=== PATIENT | male | born 1985 | race Caucasian/White ===

== ENCOUNTER → 2016-11-04 | Outpatient (CLI) | payer OTHER ==
[2016-11-04 12:48] LABS: ALBUMIN 3.6 GM/DL (3.2-5.2); ALBUMIN/GLOBULIN RATIO 0.95 (1.00-1.93); ALKALINE PHOSPHATASE 65 U/L (45-117); ALT/SGPT 64 U/L (12-78); ANION GAP 8 MEQ/L (8-16); AST/SGOT 54 U/L (15-37); BASO % 0.3 % (0.0-1.0); BILIRUBIN,TOTAL 0.4 MG/DL (0.2-1.0); BLOOD UREA NITROGEN 15 MG/DL (7-18); CALCIUM LEVEL 8.2 MG/DL (8.5-10.1); CARBON DIOXIDE LEVEL 30 MEQ/L (21-32); CHLORIDE LEVEL 106 MEQ/L (98-107); CHOLESTEROL LEVEL 173 MG/DL (<200); CREATININE FOR GFR 0.98 MG/DL (0.70-1.30); EOS # 0.1 K/mm3 (0.0-0.50); EOS % 2.6 % (0.0-3.0); FREE T4 1.23 NG/DL (0.76-1.46); GLOMERULAR FILTRATION RATE > 60.0 (>60); GLUCOSE, FASTING 97 MG/DL (70-105); LARGE UNSTAINED CELL # 0.1 K/mm3 (0.0-0.4); LARGE UNSTAINED CELL % 1.8 % (0.0-4.0); LYMPH # 1.5 K/mm3 (1.5-4.5); MEAN CORPUSCULAR HEMOGLOBIN 28.5 pg (27.0-33.0); MEAN CORPUSCULAR VOLUME 89.1 fl (80.0-96.0); MONO # 0.3 K/mm3 (0.0-0.8); MONO % 6.5 % (0.0-5.0); NEUTROPHILS % 59.8 % (36.0-66.0); PLATELET COUNT, AUTOMATED 244 k/mm3 (150-450); POTASSIUM SERUM 4.8 MEQ/L (3.5-5.1); SODIUM LEVEL 144 MEQ/L (136-145); TOTAL PROTEIN 7.4 GM/DL (6.4-8.2); TRIGLYCERIDES LEVEL 37 MG/DL (<150)
[2016-11-04 13:12] LABS: CONTROL LINE HPYORI INT CTR LINE PRESENT
== END ==
LOC: M WUC 09:16
PROVIDERS: ATTEND Physician Assistant Medical
DX: R63.5 Abnormal weight gain (principal); Z11.2 Encounter for screening for other bacterial diseases; Z00.00 Encounter for general adult medical examination without abnormal findings

== ENCOUNTER → 2016-12-11 | Outpatient (CLI) | payer OTHER | LOC: M SLEEP 19:38 | PROVIDERS: ATTEND Nurse Practitioner Adult Health | DX: G47.33 Obstructive sleep apnea (adult) (pediatric) (principal) ==

== ENCOUNTER → 2018-05-27 | Outpatient (CLI) | payer OTHER ==
[2018-05-27 17:45] LABS: BASO % 0.4 % (0.0-1.0); EOS # 0.2 10^3/uL (0.0-0.50); EOS % 2.1 % (0.0-3.0); HEMATOCRIT 47.5 % (42.0-52.0); HEMOGLOBIN 14.9 g/dl (13.5-17.5); IMMATURE GRANULOCYTE % 1.1 % (0-3.0); LYMPH # 2.1 10^3/uL (1.5-4.5); LYMPH % 29.5 % (24.0-44.0); MEAN CORPUSCULAR HEMOGLOBIN 28.3 pg (27.0-33.0); MEAN CORPUSCULAR HGB CONC 31.4 g/dl (32.0-36.5); MEAN CORPUSCULAR VOLUME 90.3 fl (80.0-96.0); MONO # 0.7 10^3/uL (0.0-0.8); MONO % 9.8 % (0.0-5.0); NEUTROPHILS # 4.1 10^3/uL (1.8-7.7); NEUTROPHILS % 57.1 % (36.0-66.0); PLATELET COUNT, AUTOMATED 258 10^3/uL (150-450); RED BLOOD COUNT 5.26 10^6/uL (4.30-6.10); RED CELL DISTRIBUTION WIDTH 13.2 % (11.5-14.5); WHITE BLOOD COUNT 7.3 10^3/uL (4.0-10.0)
[2018-05-27 18:04] LABS: ANION GAP 9 MEQ/L (8-16); BLOOD UREA NITROGEN 17 MG/DL (7-18); CALCIUM LEVEL 8.9 MG/DL (8.5-10.1); CARBON DIOXIDE LEVEL 28 MEQ/L (21-32); CHLORIDE LEVEL 106 MEQ/L (98-107); CREATININE FOR GFR 0.91 MG/DL (0.70-1.30); GLOMERULAR FILTRATION RATE > 60.0 (>60); GLUCOSE, FASTING 88 MG/DL (70-100); POTASSIUM SERUM 4.4 MEQ/L (3.5-5.1); SODIUM LEVEL 143 MEQ/L (136-145)
[2018-05-28 08:44] LABS: CONTROL LINE HPYORI INT CTR LINE PRESENT; H PYLORI QUALITATIVE IgG NEGATIVE (NEGATIVE)
== END ==
LOC: M WUC 12:40
DX: R11.2 Nausea with vomiting, unspecified (principal)
CPT/HCPCS: 80048

== ENCOUNTER 2018-06-16 11:53 | Emergency (ER) | payer OTHER ==
[2018-06-16] MEDS: NS 1,000 ML IV (12:30)
[2018-06-16 12:42] LABS: BASO % 0.3 % (0.0-1.0); EOS # 0.1 10^3/uL (0.0-0.50); EOS % 1.7 % (0.0-3.0); HEMATOCRIT 47.2 % (42.0-52.0); HEMOGLOBIN 15.2 g/dl (13.5-17.5); IMMATURE GRANULOCYTE % 0.5 % (0-3.0); LYMPH # 1.2 10^3/uL (1.5-4.5); LYMPH % 19.6 % (24.0-44.0); MEAN CORPUSCULAR HEMOGLOBIN 28.6 pg (27.0-33.0); MEAN CORPUSCULAR HGB CONC 32.2 g/dl (32.0-36.5); MEAN CORPUSCULAR VOLUME 88.7 fl (80.0-96.0); MONO # 0.4 10^3/uL (0.0-0.8); MONO % 7.2 % (0.0-5.0); NEUTROPHILS # 4.2 10^3/uL (1.8-7.7); NEUTROPHILS % 70.7 % (36.0-66.0); PLATELET COUNT, AUTOMATED 255 10^3/uL (150-450); RED BLOOD COUNT 5.32 10^6/uL (4.30-6.10); RED CELL DISTRIBUTION WIDTH 13.2 % (11.5-14.5)
[2018-06-16 13:20] LABS: ANION GAP 5 MEQ/L (8-16); BLOOD UREA NITROGEN 15 MG/DL (7-18); CALCIUM LEVEL 8.2 MG/DL (8.5-10.1); CARBON DIOXIDE LEVEL 30 MEQ/L (21-32); CHLORIDE LEVEL 107 MEQ/L (98-107); CK-MB VALUE MASS < 1.0 NG/ML (<3.6); CPK CREATINE PHOSPHOKINASE 44 U/L (39-308); GLOMERULAR FILTRATION RATE > 60.0 (>60); GLUCOSE, FASTING 89 MG/DL (70-100); MB/CK RELATIVE INDEX 2.27 (< OR =4); POTASSIUM SERUM 4.4 MEQ/L (3.5-5.1); SODIUM LEVEL 142 MEQ/L (136-145); TROPONIN I < 0.02 NG/ML (< 0.10)
[2018-06-16] MEDS: MORPHINE 2 MG/ML 1ML SYRINGE (J2270) IV (13:35)
== END 2018-06-16 14:15 | disposition home or self-care (01) ==
LOC: M ED 11:53
DX: R07.9 Chest pain, unspecified (principal); R94.31 Abnormal electrocardiogram [ECG] [EKG]; K21.9 Gastro-esophageal reflux disease without esophagitis; Z79.899 Other long term (current) drug therapy
CPT/HCPCS: J2270

== ENCOUNTER → 2018-10-25 | Outpatient (CLI) | payer OTHER ==
[~2018-10-25] MED LIST: APAP500T10 PO; BREO1INH PO; CIPR-249 PO; FLAG500T PO; METO10TA2; OMEP40CA2; PROAAER10; ROBA500T PO; SERT-138; ZOFR4TAB16 PO
--- NOTE | 2018-10-25 18:47 | REP ---
Clinical: Contusion. Technique: AP and lateral views of the left humerus. Findings: Osseous structures, joint spaces, and surrounding soft tissues are normal. No acute fracture dislocation. No subcutaneous emphysema or radiodense foreign body. Impression: No acute fracture dislocation. Electronically Signed by Cirilo Landaverde MD 10/25/2018 06:38 P
--- NOTE | 2018-10-25 18:50 | REP ---
Clinical: Contusion . Technique: Internal rotation, external rotation, and Y view left shoulder . Findings: No acute fracture or dislocation. The acromioclavicular and glenohumeral joints are intact. No periarticular calcifications or degenerative changes are appreciated. Sub acromial space is normal. Surrounding soft tissues are unremarkable. Impression: No acute fracture or dislocation. Electronically Signed by Cirilo Landaverde MD 10/25/2018 06:41 P
== END ==
LOC: M WUC 18:19
PROVIDERS: ATTEND Physician Assistant
DX: S40.012A Contusion of left shoulder, initial encounter (principal); S40.022A Contusion of left upper arm, initial encounter; X58.XXXA Exposure to other specified factors, initial encounter; Y92.9 Unspecified place or not applicable

== ENCOUNTER 2018-10-29 05:27 | Emergency (ER) | payer OTHER ==
[~2018-10-29] VITALS: Ht 175.3 cm; Wt 140.9 kg
[~2018-10-29 05:27] MED LIST changes: -CIPR-249 PO; -FLAG500T PO; -ZOFR4TAB16 PO
[2018-10-29] MEDS ORDERED: NS 1,000 ML IV ONE (06:15)
[2018-10-29] MEDS ORDERED: METOCLOPRAMIDE INJ 10MG/2ML VIAL (J2765) IV ONE (06:15)
[2018-10-29] MEDS ORDERED: MORPHINE 4 MG/ML 1ML VIAL/SYRINGE (J2270) IV ONE (06:15)
[2018-10-29 06:34] LABS: APPEARANCE, URINE CLEAR (CLEAR); BACTERIA, URINE AUTO NEGATIVE (NEGATIVE); BASO % 0.5 % (0.0-1.0); BILIRUBIN, URINE AUTO NEGATIVE (NEGATIVE); BLOOD, URINE BLOOD NEGATIVE (NEGATIVE); COLOR, URINE YELLOW (YELLOW); EOS # 0.2 10^3/uL (0.0-0.50); GLUCOSE, URINE (UA) AUTO NEGATIVE (NEGATIVE); HEMATOCRIT 45.9 % (42.0-52.0); HEMOGLOBIN 14.4 g/dl (13.5-17.5); KETONE, URINE AUTO NEGATIVE (NEGATIVE); LEUKOCYTE ESTERASE, URINE AUTO NEGATIVE (NEGATIVE); LYMPH # 2.1 10^3/uL (1.5-4.5); LYMPH % 24.6 % (24.0-44.0); MEAN CORPUSCULAR HEMOGLOBIN 28.1 pg (27.0-33.0); MEAN CORPUSCULAR HGB CONC 31.4 g/dl (32.0-36.5); MEAN CORPUSCULAR VOLUME 89.6 fl (80.0-96.0); MONO # 0.8 10^3/uL (0.0-0.8); MONO % 9.2 % (0.0-5.0); MUCUS, URINE SMALL (NEGATIVE); NEUTROPHILS # 5.4 10^3/uL (1.8-7.7); NITRITE, URINE AUTO NEGATIVE (NEGATIVE); PLATELET COUNT, AUTOMATED 251 10^3/uL (150-450); PROTEIN, URINE AUTO NEGATIVE (NEGATIVE); RBC, URINE AUTO 3 /HPF (0-3); RED BLOOD COUNT 5.12 10^6/uL (4.30-6.10); SPECIFIC GRAVITY URINE AUTO 1.018 (1.002-1.035); SQUAMOUS EPITHELIAL CELL UR AU 0 /HPF (0-6); WBC, URINE AUTO 1 /HPF (0-3); WHITE BLOOD COUNT 8.6 10^3/uL (4.0-10.0)
[2018-10-29 06:59] LABS: ALBUMIN 3.7 GM/DL (3.2-5.2); ALT/SGPT 24 U/L (12-78); BILIRUBIN,DIRECT 0.1 MG/DL (0.0-0.2); BILIRUBIN,TOTAL 0.5 MG/DL (0.2-1.0); BLOOD UREA NITROGEN 18 MG/DL (7-18); CARBON DIOXIDE LEVEL 27 MEQ/L (21-32); CHLORIDE LEVEL 107 MEQ/L (98-107); CREATININE FOR GFR 0.87 MG/DL (0.70-1.30); GLOMERULAR FILTRATION RATE > 60.0 (>60); GLUCOSE, FASTING 103 MG/DL (70-100); LIPASE 56 U/L (73-393); POTASSIUM SERUM 4.5 MEQ/L (3.5-5.1); SODIUM LEVEL 141 MEQ/L (136-145); TOTAL PROTEIN 7.7 GM/DL (6.4-8.2)
[2018-10-29] MEDS: GASTROGRAFIN SOLUTION 30ML PO SCH ×2 (07:10→07:45)
[2018-10-29] MEDS ORDERED: ISOVUE-370 76% 100ML VIAL (Q9967) As Ordered ONE (07:31)
--- NOTE | 2018-10-29 07:58 | REPVR ---
EXAM: CT Abdomen and Pelvis With Contrast EXAM DATE/TIME: 10/29/2018 7:37 AM CLINICAL HISTORY: 32 years old, male; Pain; Abdominal pain; Generalized TECHNIQUE: Axial computed tomography images of the abdomen and pelvis with intravenous contrast. All CT scans at this facility use at least one of these dose optimization techniques: automated exposure control; mA and/or kV adjustment per patient size (includes targeted exams where dose is matched to clinical indication); or iterative reconstruction. Coronal and sagittal reformatted images were created and reviewed. CONTRAST: Contrast Material: 100 ml of [id number]; Contrast Route: iv COMPARISON: No relevant prior studies available. FINDINGS: Lower thorax: There is a small sliding hiatal hernia. ABDOMEN: Liver: Normal. No mass. Gallbladder and bile ducts: Normal. No calcified stones. No ductal dilation. Pancreas: Normal. No ductal dilation. Spleen: The spleen is mildly enlarged measuring 14.6 x 13.3 x 6.0 cm. Adrenals: Normal. No mass. Kidneys and ureters: There is a punctate 1 mm left upper pole stone (axial image 67). Another punctate 1 mm stone is seen in the left midpole (axial image 77). There is no hydronephrosis. Stomach and bowel: Normal. No obstruction. No mucosal thickening. Appendix: No evidence of appendicitis. PELVIS: Bladder: Unremarkable as visualized. Reproductive: Unremarkable as visualized. ABDOMEN and PELVIS: Intraperitoneal space: Normal. No free air. No significant fluid collection. 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 Soft tissues: Unremarkable. Vasculature: Normal. No abdominal aortic aneurysm. Lymph nodes: There is nonspecific shotty small bowel mesenteric lymph nodes. There are shotty bilateral inguinal lymph nodes. IMPRESSION: 1. Mild splenomegaly. 2. Small sliding hiatal hernia. 3. Punctate 1 mm left renal nonobstructing stones. 4. Nonspecific shotty small bowel mesenteric lymph nodes is nonspecific and can be secondary to infectious/inflammatory process such as enteritis. Correlate clinically. 5. Bilateral shotty inguinal lymph nodes. These can also be reactive to an inflammatory/infectious process. Follow up is recommended to document resolution or stability. Electronically signed by: Chito Emerson On 10/29/2018 07:57:51 AM
[2018-10-29] MEDS ORDERED: CIPR-249 PO (08:10)
[2018-10-29] MEDS ORDERED: FLAG500T PO (08:10)
[2018-10-29] MEDS ORDERED: ZOFR4TAB16 PO (08:11)
[2018-10-29] MEDS ORDERED: CIPROFLOXACIN 500 MG TAB PO ONE (08:15)
[2018-10-29] MEDS ORDERED: metroNIDAZOLE (FLAGYL) 500 MG TAB PO ONE (08:15)
[2018-10-29] MEDS ORDERED: OXYCODONE/APAP 5MG/325MG(BULK FOR ED) 1 TABLET PO ONE (08:15)
--- NOTE | 2018-10-29 08:23 | ED PDOC ---
Post-Departure Follow-Up ashly encarnacion faxed formal report of ct abd/p for fu Shelby Lopez MD Oct 29, 2018 08:22
[2018-10-29 08:29] VITALS: BP 125/78
== END 2018-10-29 08:34 | disposition home or self-care (01) ==
LOC: M ED 05:27
DX: K52.9 Noninfective gastroenteritis and colitis, unspecified (principal); R10.9 Unspecified abdominal pain; R11.10 Vomiting, unspecified
CPT/HCPCS: 74177; 80048; 80076; 81001; 83690; 85025; 87086; 96374; 96375; 99284; J2270; J2765; Q9967

== ENCOUNTER → 2019-11-08 | Outpatient (REF) | payer MEDICAID, OTHER ==
[~2019-11-08] MED LIST changes: +CIPR-249 PO; +FLAG500T PO; -OMEP40CA2; +OMEP40CA97; +ZOFR4TAB16 PO
[2019-11-08 17:21] LABS: BASO % 0.4 % (0.0-1.0); EOS # 0.3 10^3/uL (0.0-0.5); EOS % 3.7 % (0.0-3.0); HEMATOCRIT 44.6 % (42.0-52.0); HEMOGLOBIN 13.8 g/dl (13.5-17.5); LYMPH # 2.6 10^3/uL (1.5-5.0); LYMPH % 38.6 % (24.0-44.0); MEAN CORPUSCULAR HEMOGLOBIN 28.8 pg (27.0-33.0); MEAN CORPUSCULAR HGB CONC 30.9 g/dl (32.0-36.5); MEAN CORPUSCULAR VOLUME 92.9 fl (80.0-96.0); MONO # 0.5 10^3/uL (0.0-0.8); MONO % 7.4 % (0.0-5.0); NEUTROPHILS # 3.3 10^3/uL (1.5-8.5); NEUTROPHILS % 49.3 % (36.0-66.0); PLATELET COUNT, AUTOMATED 254 10^3/uL (150-450); WHITE BLOOD COUNT 6.7 10^3/uL (4.0-10.0)
[2019-11-08 17:26] LABS: APPEARANCE, URINE CLEAR (CLEAR); BACTERIA, URINE AUTO NEGATIVE (NEGATIVE); BILIRUBIN, URINE AUTO NEGATIVE (NEGATIVE); BLOOD, URINE BLOOD NEGATIVE (NEGATIVE); COLOR, URINE YELLOW (YELLOW); GLUCOSE, URINE (UA) AUTO NEGATIVE (NEGATIVE); KETONE, URINE AUTO NEGATIVE (NEGATIVE); LEUKOCYTE ESTERASE, URINE AUTO NEGATIVE (NEGATIVE); NITRITE, URINE AUTO NEGATIVE (NEGATIVE); PROTEIN, URINE AUTO NEGATIVE (NEGATIVE); RBC, URINE AUTO 1 /HPF (0-3); SQUAMOUS EPITHELIAL CELL UR AU 0 /HPF (0-6); UROBILINOGEN, URINE AUTO 0.2 mg/dL (0.0-2.0); WBC, URINE AUTO 1 /HPF (0-3)
[2019-11-08 17:40] LABS: HEMOGLOBIN A1c 5.2 %
[2019-11-08 17:47] LABS: ALBUMIN 3.5 GM/DL (3.2-5.2); ALT/SGPT 25 U/L (12-78); BILIRUBIN,TOTAL 0.3 MG/DL (0.2-1.0); BLOOD UREA NITROGEN 17 MG/DL (7-18); CALCIUM LEVEL 8.4 MG/DL (8.5-10.1); CARBON DIOXIDE LEVEL 30 MEQ/L (21-32); CHLORIDE LEVEL 107 MEQ/L (98-107); CHOLESTEROL LEVEL 174 MG/DL (<200); CHOLESTEROL RISK RATIO 2.259 (<5); CREATININE FOR GFR 0.91 MG/DL (0.70-1.30); FREE T4 0.93 NG/DL (0.76-1.46); GLOMERULAR FILTRATION RATE > 60.0 (>60); GLUCOSE, FASTING 89 MG/DL (70-100); HDL CHOLESTEROL 77 MG/DL (>40); LDL CHOLESTEROL 87 MG/DL (<100); MAGNESIUM LEVEL 2.3 MG/DL (1.8-2.4); NON-HDL-C 97 MG/DL; POTASSIUM SERUM 4.3 MEQ/L (3.5-5.1); SODIUM LEVEL 142 MEQ/L (136-145); THYROID STIMULATING HORMONE 0.913 uIU/ML (0.358-3.740); TOTAL PROTEIN 6.8 GM/DL (6.4-8.2); TRIGLYCERIDES LEVEL 49 MG/DL (<150)
== END ==
LOC: M SFHCCAPE 09:02
PROVIDERS: ATTEND Physician Assistant
DX: Z00.00 Encounter for general adult medical examination without abnormal findings (principal); E66.01 Morbid (severe) obesity due to excess calories

== ENCOUNTER → 2020-04-11 | Outpatient (CLI) | payer MEDICAID, OTHER ==
--- NOTE | 2020-05-10 13:51 | SLEEPCENT ---
DATE: 04/11/2020 ORDERED BY: Dr. Natalya Yang Nocturnal polysomnography was performed for evaluation of sleep physiology in this patient with a history of somnolence and nonrestorative sleep. There was 7 hours and 12 minutes of data reviewed. There was 284 minutes of sleep identified. Sleep latency was prolonged at 73 minutes. REM latency was prolonged at 164 minutes. Sleep architecture showed fragmentation. There was one REM cycle. Overall sleep efficiency was 66.9%. The electrocardiogram showed a sinus rhythm with an average heart rate of 80 beats per minute. EEG showed reasonably normal waveforms for wake and sleep. There were 448 respiratory events identified of 10 seconds in duration or greater, for an apnea-hypopnea index of 94.6. The events were primarily obstructive, but 46 mixed and central apneas were also seen. Events were not exclusive to sleep stage. They were not exclusive to body posture. Arousals from respiratory events occurred 16.9 times per hour, and oxygen desaturations were seen into the 80s. There was some limb activity, but arousals were few. IMPRESSION: Severe obstructive sleep apnea syndrome (G47.33). Apnea-hypopnea index 94.6. RECOMMENDATION: The patient should be encouraged to return to the sleep disorder center for pressure therapy. In the interim, alcohol and sedative avoidance should be practiced and caution exercised during the operation of motor vehicles. ANTHONYD
== END ==
LOC: M SLEEP 20:00
PROVIDERS: ATTEND Nurse Practitioner Family
DX: G47.33 Obstructive sleep apnea (adult) (pediatric) (principal)

== ENCOUNTER → 2020-05-27 | Outpatient (CLI) | payer OTHER ==
--- NOTE | 2020-06-02 19:12 | SLEEPCENT ---
DATE: 05/27/2020 ORDERED BY: DANK Orourke Nocturnal polysomnography was performed for the titration of pressure therapy in this patient with severe obstructive sleep apnea syndrome, apnea-hypopnea index of 94. For testing, the patient was fit with a ResMed Airfit F20 full face mask of large size, 4 cm of water pressure were applied to the circuit and the lights were extinguished. Seven hours and 53 minutes of data were reviewed. There was 395 minutes of sleep identified. Sleep latency was normal at 14.5 minutes. REM latency was mildly delayed at 125 minutes. Sleep architecture showed some persistence of fragmentation but there were two REM cycles noted. Overall sleep efficiency was 84.6%. The electrocardiogram showed what appeared to be a sinus rhythm with an average heart rate of 80 beats per minute. EEG showed fairly normal waveforms for wake and sleep. Persistence of respiratory events prompted an increase in CPAP pressure and the best sleep was seen on the CPAP pressure of +9. Limb activity was prominent once again on this study. The limb movement arousal index was 8.8. IMPRESSION: Obstructive sleep apnea syndrome (G47.33). RECOMMENDATION: Nightly use of pressure therapy 9 cm of water. MTDD
== END ==
LOC: M SLEEP 20:00
PROVIDERS: ATTEND Nurse Practitioner Family
DX: G47.33 Obstructive sleep apnea (adult) (pediatric) (principal)

== ENCOUNTER → 2020-06-11 | Outpatient (REF) | payer OTHER, MEDICAID ==
[2020-06-12 11:57] LABS: BASO % 0.4 % (0.0-1.0); EOS # 0.1 10^3/uL (0.0-0.5); EOS % 1.9 % (0.0-3.0); HEMATOCRIT 43.7 % (42.0-52.0); HEMOGLOBIN 13.4 g/dl (13.5-17.5); LYMPH # 1.6 10^3/uL (1.5-5.0); LYMPH % 23.4 % (24.0-44.0); MEAN CORPUSCULAR HEMOGLOBIN 27.7 pg (27.0-33.0); MEAN CORPUSCULAR HGB CONC 30.7 g/dl (32.0-36.5); MEAN CORPUSCULAR VOLUME 90.3 fl (80.0-96.0); MONO # 0.5 10^3/uL (0.0-0.8); MONO % 7.5 % (0.0-5.0); NEUTROPHILS # 4.6 10^3/uL (1.5-8.5); NEUTROPHILS % 66.2 % (36.0-66.0); PLATELET COUNT, AUTOMATED 255 10^3/uL (150-450); RED BLOOD COUNT 4.84 10^6/uL (4.30-6.10)
[2020-06-12 12:20] LABS: HEMOGLOBIN A1c 5.2 %
[2020-06-12 12:26] LABS: ALBUMIN 3.5 GM/DL (3.2-5.2); ALT/SGPT 22 U/L (12-78); BILIRUBIN,TOTAL 0.4 MG/DL (0.2-1.0); BLOOD UREA NITROGEN 12 MG/DL (7-18); CALCIUM LEVEL 8.9 MG/DL (8.5-10.1); CARBON DIOXIDE LEVEL 30 MEQ/L (21-32); CHLORIDE LEVEL 108 MEQ/L (98-107); CHOLESTEROL LEVEL 175 MG/DL (<200); CHOLESTEROL RISK RATIO 2.364 (<5); CREATININE FOR GFR 0.99 MG/DL (0.70-1.30); FREE T4 1.17 NG/DL (0.76-1.46); GLOMERULAR FILTRATION RATE > 60.0 (>60); GLUCOSE, FASTING 87 MG/DL (70-100); HDL CHOLESTEROL 74 MG/DL (>40); LDL CHOLESTEROL 94 MG/DL (<100); NON-HDL-C 101 MG/DL; POTASSIUM SERUM 5.2 MEQ/L (3.5-5.1); PROLACTIN 9.8 NG/ML (2.1-17.7); SODIUM LEVEL 141 MEQ/L (136-145); TOTAL PROTEIN 7.5 GM/DL (6.4-8.2); TRIGLYCERIDES LEVEL 36 MG/DL (<150)
[2020-06-13 19:07] LABS: TESTOSTERONE FREE (DIRECT) 7.6 pg/mL (8.7-25.1)
== END ==
LOC: M SFHCCLAY 11:19
PROVIDERS: ATTEND Physician Assistant
DX: L98.9 Disorder of the skin and subcutaneous tissue, unspecified (principal); R19.4 Change in bowel habit; N52.9 Male erectile dysfunction, unspecified; E66.01 Morbid (severe) obesity due to excess calories

== ENCOUNTER 2020-06-20 14:15 | Outpatient (RCR) | payer OTHER | END 2020-06-29 | LOC: M PT 14:15 | PROVIDERS: ATTEND Otolaryngology | DX: M26.609 Unspecified temporomandibular joint disorder, unspecified side (principal) ==

== ENCOUNTER → 2020-08-02 | Outpatient (CLI) | payer OTHER ==
--- NOTE | 2020-08-02 15:03 | REP ---
INDICATION: RENAL STONES. COMPARISON: 10/29/2018 and contrast enhanced exam TECHNIQUE: Noncontrast enhanced stone protocol FINDINGS: The lung bases are clear and unchanged. Limited evaluation of the solid intra-organs and gallbladder show no abnormalities. Limited evaluation of the adrenal glands and kidneys show no abnormalities. There is no nephroureterolithiasis, hydronephrosis, or hydroureter. There are no urinary bladder calcifications. The pancreas is unremarkable. There is no free fluid or free air. Limited evaluation of the bowel loops and mesenteries show no abnormalities. Limited evaluation of the abdominal aorta and para-regions show no abnormalities. The osseous structures are stable and intact.. IMPRESSION: CT findings are within normal limits on this limited noncontrast enhanced examination. <Electronically signed by Eros Candelario > 08/02/20 [id number]
== END ==
LOC: M RAD 14:13
PROVIDERS: ATTEND Urology
DX: Z87.442 Personal history of urinary calculi (principal)

== ENCOUNTER → 2020-08-14 | Outpatient (REF) | payer OTHER | LOC: M SFHCCLAY 15:47 | PROVIDERS: ATTEND Nurse Practitioner Family | DX: R05 Cough (principal) ==

== ENCOUNTER → 2020-08-15 | Outpatient (CLI) | payer OTHER ==
[~2020-08-15] MED LIST changes: +GLUCAGON INJ 1MG VIAL As Ordered ONE; +ISOVUE-370 76% 100ML VIAL As Ordered ONE; +VoLumen 0.1% SUSPENSION 450ML BOTTLE As Ordered ONE
[2020-08-15 13:10] LABS: FREE T4 1.18 NG/DL (0.76-1.46); THYROID STIMULATING HORMONE 1.82 uIU/ML (0.358-3.740)
--- NOTE | 2020-08-15 15:15 | REP ---
INDICATION: ABNORMAL FINDINGS PRT DIGESTIVE, LABS FIRST!!. Evaluate for small bowel disc disease inflammatory bowel or Crohn's disease. Compare mesenteric lymphadenopathy on CT 2019. COMPARISON: Comparison CT studies are dated October 29, 2018 and August 02, 2020.. TECHNIQUE: The patient ingested oral Volumen for PO contrast per protocol. 0.6 mg of intravenous glucagon is administered. 100 ml of Isovue 370 is given intravenously for intravenous contrast. Helical scanning is acquired. Arterial phase and delayed phase imaging was acquired. Thick slab coronal and sagittal MIP images are generated. In addition coronal and sagittal multiplanar re-formation images are generated and reviewed along with axial images. FINDINGS: Preliminary digital cranberry grower radiograph demonstrates an unremarkable bowel gas pattern. The lung bases are clear. There is moderate diffuse fatty infiltration of the liver. No focal liver mass lesion is seen. The spleen is unremarkable. Normal adrenal glands are seen. No abnormality is noted in the pancreas or the gallbladder. Kidneys enhance symmetrically and are morphologically intact. No retroperitoneal mass or adenopathy is observed. No small bowel mesenteric adenopathy is seen. There are two or 3 normal appearing small bowel mesenteric lymph nodes unchanged from the October 2018 prior study. Normal appendix is visualized at the cecal tip. Dual phase post-contrast imaging shows no evidence of abnormal contrast enhancement in the wall of the smaller large bowel. Terminal ileum is unremarkable. The no obstructive lesion is seen. There is no evidence of pelvic mass or adenopathy. No abnormal fluid collection is seen. On bone window settings there is a developmental cleft and some anterior wedging in the T11 vertebral body with slight kyphosis. This is a chronic finding unchanged. Developmental cleft vertebra. No acute bony abnormality is appreciated. IMPRESSION: Unremarkable CT enterography. Scattered normal sized mesenteric lymph nodes unchanged. No bowel wall abnormality seen. Fatty infiltration of the liver. <Electronically signed by Sean Ochoa > 08/15/20 [id number]
[2020-08-21 17:07] LABS: CHROMOGRANIN A 26.5 ng/mL (0.0-101.8); GASTRIN 15 pg/mL (0-115); TISSUE TRANSGLUTAMINASE IgA <2 U/mL (0-3)
== END ==
LOC: M LAB 11:32
PROVIDERS: ATTEND Internal Medicine Gastroenterology
DX: K76.0 Fatty (change of) liver, not elsewhere classified (principal); R93.3 Abnormal findings on diagnostic imaging of other parts of digestive tract; I88.0 Nonspecific mesenteric lymphadenitis; K58.2 Mixed irritable bowel syndrome
CPT/HCPCS: 36415; 74177; 82784; 82941; 84439; 84443; 86235; 86316; J1610; Q9967

== ENCOUNTER → 2020-09-27 | Outpatient (CLI) | payer OTHER ==
[~2020-09-27] MED LIST changes: +AMBI5TAB PO; -GLUCAGON INJ 1MG VIAL As Ordered ONE; -ISOVUE-370 76% 100ML VIAL As Ordered ONE; +LORA2CON5 PO; +VENL75TA2 PO; -VoLumen 0.1% SUSPENSION 450ML BOTTLE As Ordered ONE
== END ==
LOC: M LABSMTC 13:54
PROVIDERS: ATTEND Anesthesiology
DX: Z20.822 Contact with and (suspected) exposure to COVID-19 (principal)

== ENCOUNTER 2020-10-01 09:50 | Day surgery (SDC) | payer OTHER ==
[~2020-10-01] VITALS: Ht 175.3 cm; Wt 152.4 kg
[~2020-10-01 09:50] MED LIST changes: +NS 1,000 ML IV ONE
--- OUTSIDE RECORDS SUMMARY | 2020-10-01 09:55 | CCD | Continuity of Care Document ---
Author Author Luca KIDD MD Organization Unknown Address [address] [place] [address] Phone [phone] Care Team Providers Care Labor Economics Professor Name Role Phone Chata Hightower P.A.-C AUTM AUTM Unavailable Problems Description No Information Available Social History Type Date Description Comments Sex Unknown ETOH Use Denies alcohol use Tobacco Use Start: Unknown Patient has never smoked Recreational Drug Use Denies Drug Use Smoking Status Reviewed: 07/29/20 Patient has never smoked Allergies, Adverse Reactions, Alerts Description No Known Drug Allergies Medications Active Medications SIG Qnty Indications Ordering Provide r Date Magnesium Citrate 1.745GM/30ML Denice ution one 10 oz bottle green or clear only, use for additional prep at 2-3 days before procedure 296ml K58.2 Nick Kidd MD 08/05/2020 Miralax 17GM/Scoop Powder use as directed see dr kidd colon preparation instructions 510gm K58.2 Jaime myriam Kidd MD 08/05/2020 CPAP Device 9cm Natalya Chance, N.P. 06/04/2020 Lorazepam 0.5mg Tablets 1 tab by mouth three times a day Unknown Lexapro 20mg Tablets 1 tab by mouth every day Unknown Albuterol Sulfate HFA 108(90Base) mcg/Act Aerosol inhale two puffs by mouth four times a day as needed Unknown Advair Diskus 250-50mcg/Dose Aeros ol 1 puff twice a day Unknown Ambien 5mg Tablets 1 tab by mouth every night at bedtime Unknown Singulair 10mg Tablets 1 by mouth every night at bedtime Unknown Immunizations Description No Information Available Vital Signs Date Vital Result Comment 08/05/2020 11:05am BP Systolic 120 mmHg BP Diastolic 70 mmHg Height 69 inches 5'9" Weight 345.00 lb BMI (Body Mass Index) 50.9 kg/m2 [place] Body Weight 160 lb Weight 156.492 kg BSA (Body Surface Area) 2.60 m2 07/29/2020 3:24pm BP Systolic 110 mmHg BP Diastolic 72 mmHg Heart Rate 106 /min O2 % BldC Oximetry 98 % Body Temperature 97.8 F Height 69 inches 5'9" Weight 340.00 lb BMI (Body Mass Index) 50.2 kg/m2 [place] Body Weight 160 lb Weight 154.224 kg BSA (Body Surface Area) 2.59 m2 Results Description No Information Available Procedures Description No Information Available Medical Devices Description No Information Available Encounters Type Date Location Provider Dx Diagnosis Office Visit 08/05/2020 11:00a [facility] Nick Kidd MD K58.2 Mixed irritable bowel syndrome R11.0 Nausea R93.3 Abnormal findings on dx imag ing of prt digestive tract Office Visit 07/29/2020 3:45p [facility] Valencia Paz, N.P. 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 G47.33 Obstructive sleep apnea (adult) (pediatr ic) Office Visit 03/28/2020 1:15p [facility] Valencia Paz, N.P. G47.33 Obstructive sleep apnea (adult) (pediatr ic) R06.83 Snoring R40.0 Somnolence G47.59 Other parasomnia Assessments Date Code Description Provider 08/05/2020 K58.2 Mixed irritable bowel syndrome D debra Kidd MD 08/05/2020 R11.0 Nausea Nick Kidd MD 08/05/2020 R93.3 Abnormal findings on diagnostic imaging of other parts of digestive tract Nick Kidd MD 07/29/2020 G47.33 Obstructive sleep apnea (adult) (pediatric) Natalya Paz N.P. 05/31/2020 M26.69 Other specified disorders of tem poromandibular joint Dru Turner MD 05/13/2020 G47.33 Obstructive sleep apnea (adult) (pediatric) Natalya Paz, N.P. 03/28/2020 G47.33 Obstructive sleep apnea (adult) (pediatric) Otto Paza, N.P. 03/28/2020 R06.83 Snoring Otto Paza, N .P. 03/28/2020 R40.0 Somnolence Brandi, Natalya, N .P. 03/28/2020 G47.59 Other parasomnia Natalya Paz, N.P. Plan of Treatment Future Appointment(s):* 01/28/2021 3:45 pm - Natalya Paz, N.P. at [facility] 08/05/2020 - Nick Kidd MD* K58.2 Mixed irritable bowel syndrome * R11.0 Nausea * R93.3 Abnormal findings on diagnostic imaging of other parts of digestive tract * * New Medication:* Magnesium Citrate 1.745 GM/30ML * Miralax 17 GM/Scoop * New Labs:* Chromogranin A, Ordered: 08/05/20 * Gastrin, Ordered: 08/05/20 * Tissue Transglutaminase Iga, Ordered: 08/05/20 * Immunoglobulin A, Ordered: 08/05/20 * FT4&TSH Panel, Ordered: 08/05/20 * New Orders:* Colonoscopy, Ordered: 08/05/20 * Endoscopy, Ordered: 08/05/20 * Comments:* many years of intermittent GI symptoms of bloating gas and loose stools. occasionally also with constipatuion. no blood, no weight loss no fever. feels flushing and weakness at times...feels drained. * Recommendations:* EGD/[facility] Gastrin, Chromogranin, celiac markers Had mesenteric and inguinal lymph nodes on CT 2018--his recent CT unfortunately was done without contrast. I will repeat the CT--do with contrast Functional Status Functional Condition Comment Date Status Independent with all ADL's Activ e Mental Status Mental Condition Comment Date Status Cognitive ability not impaired A ctive Referrals Refer to Reason for Referral Status Appt Date Nick Kidd MD CHANGE IN BOWEL HABITS, DIARRHEA, CONSTIPATION Scheduled 08/05/2020 [facility], Gastroenterology [address], [address] [place] [address] [phone]
--- OUTSIDE RECORDS SUMMARY | 2020-10-01 09:55 | CCD ---
Author Author [facility] Organization [facility] Address Unknown Phone Unavailable Care Team Providers Care Rn Heart Name Role Phone Bere Alexandra Unavailable PROBLEMS Type Condition ICD9-CM Code [id number] Code Onset Dates Condition S tatus SNOMED Code Notes Problem Morbid (severe) obesity due to excess calories E66 .01 Active 08339039193097 Problem YANG (obstructive sleep apnea) G47.33 Active 78 865472 Problem Panic disorder [episodic paroxysmal anxiety] F41.0 Active 768564023 Problem Insomnia, unspecified type G47.00 Active 56623 2000 Problem Generalized anxiety disorder F41.1 Active 218 78199 Problem Hypogonadism in male E29.1 Active 39392730 Problem Mild intermittent asthma, unspecified whether complicated J45.20 Active 672222569 Problem Drug-induced erectile dysfunction N52.2 Active 701489735 Problem Body mass index (BMI) 45.0-49.9, adult Z68.42 A ctive 724459391 Problem Major depressive disorder, recurrent, moderate F33 .1 Active 992169062 Problem Obstructive sleep apnea G47.33 Active 21272855 Problem Erectile dysfunction, unspecified erectile dysfunction typ e N52.9 Active 750055914 Problem Calculus, renal N20.0 Active 84988052 ALLERGIES No Known Allergies ENCOUNTERS from 1983 to 2020-09-21 Encounter Location Date Provider Diagnosis [facility] [place] [address] Jul Bere Alexandra Cough R05 ; Viral illness B34.9 ; Nonint ractable headache, unspecified chronicity pattern, unspecified headache type R51.9 ; Mild intermittent asthma, unspecified whether complicated J45.20 and Nausea and vomiting, intractability of vomiting not specified, unspecified vomiting type R11.2 IMMUNIZATIONS No Information SOCIAL HISTORY Tobacco Use: Social History Observation Description Date Details (start date - stop date) Never Smoker Sex Assigned At : Social History Observation Description Sex Assigned At Unknown Education: Question Answer Notes Level of Education: Finished College Audit Question Answer Notes Total Score: 0 Interpretation: Alcohol Education Language: Question Answer Notes Languages spoken: Tanzanian Worship: Question Answer Notes Worship No pentecostalism beliefs that would impact health care. Sexual Hx: Question Answer Notes Had sex in the last 12 months (vaginal, oral, or anal)? Yes Have you ever had an STD? No with Women only Use protection? No Drug and Alcohol Question Answer Notes Total Score: 0 Interpretation: No problems reported Alcohol Screening: Question Answer Notes Did you have a drink containing alcohol in the past year? No Points 0 Interpretation Negative Tobacco Use: Question Answer Notes Are you a: never smoker REASON FOR REFERRAL No Information VITAL SIGNS Weight 342 lbs Jul, Height 5'9" in Jul, BMI 50.50 kg/m2 Jul, Heart Rate 90 /min Jul, Respiratory Rate 18 /min Jul, Temperature 97.9 degrees Fahrenheit Jul, Oximetry 99%RA Jul, Blood pressure systolic 125 mm Hg Jul, Blood pressure diastolic 91 mm Hg Jul, MEDICATIONS Medication SIG (Take, Route, Frequency, Duration) Notes Start Da te End Date Status Mirtazapine 15 MG 1 tablet at bedtime Orally Once a day Active Ibuprofen 800 MG 1 tablet with food or milk a s needed Orally Three times a day for 10 day(s) Jul, Active Lexapro 20 MG 1 tablet Orally Once a day Active Ventolin HFA 108 (90 Base) MCG/ACT 1 puff as needed Inhalation ever y 4 hrs Active LORazepam 0.5 MG 1 tablet at bedtime as needed Orally Once a day Active Advair Diskus 250-50 MCG/DOSE 1 puff Inhalation Twice a day Active PROCEDURES No Information RESULTS Component Value Reference Range Rapid Flu (Cielo Influenza A+B LARISSA) Reviewed date:08/14/2020 11:23:20 Interpretation: Performing Lab:[facility], ,[place] [address] Internal Controls Performed (Y/N) yes Result A (Positive/Negative) neg Result B (Positive/Negative) neg Coronavirus 2019 NOSE (Send Out) COVID Reviewed date:08/19/2020 13:48:27 Interpretation: Performing Lab:[facility], [facility] [address] [place] [id number] , ,[place] [address] CORONAVIRUS 2019 NOSE This nucleic acid amplificat ion test was developed and its CORONAVIRUS 2019 NOSE performance characteristics determined by [facility] CORONAVIRUS 2019 NOSE [facility]. Nucleic acid a mplification tests include PCR CORONAVIRUS 2019 NOSE and TMA. This test has not been FDA cl eared or approved. CORONAVIRUS 2019 NOSE This test has been authorize d by FDA under an Emergency Use CORONAVIRUS 2019 NOSE Authorization (EUA). This test is only authorized for CORONAVIRUS 2019 NOSE the duration of time the declaration t hat circumstances CORONAVIRUS 2019 NOSE exist justifying the authori zation of the emergency use of CORONAVIRUS 2019 NOSE in vitro diagnostic tests fo r detection of SARS-CoV-2 virus CORONAVIRUS 2019 NOSE and/or diagnosis of COVID-19 infection under section CORONAVIRUS 2019 NOSE 564(b)(1) of the Act, 21 U.S .C. 360bbb-3(b) (1), unless the CORONAVIRUS 2019 NOSE authorization is terminated or revoked sooner. CORONAVIRUS 2019 NOSE When diagnostic testing is negative, t he possibility of a CORONAVIRUS 2019 NOSE false negative result should be consid ered in the context CORONAVIRUS 2019 NOSE of a patient's recent exposures and th e presence of CORONAVIRUS 2019 NOSE clinical signs and symptoms consistent with COVID-19. An CORONAVIRUS 2019 NOSE individual without symptoms of COVID-1 9 and who is not CORONAVIRUS 2019 NOSE shedding SARS-CoV-2 virus would expect to have a negative CORONAVIRUS 2019 NOSE (not detected) result in this assay. CORONAVIRUS 2019 NOSE Performed at: [email or web address] CORONAVIRUS 2019 NOSE [address], [place], [place] [id number] CORONAVIRUS 2019 NOSE Print [employer] Chief Clerk: Jordyn Naranjo PhD, P debbi: [id number] CORONAVIRUS 2019 NOSE CORONAVIRUS 2019 NOSE Not Detected CORONAVIRUS 2019 NOSE REASON FOR VISIT n/v, body aches MEDICAL (GENERAL) HISTORY Type Description Date Medical History anxiety/depression Medical History panic attacks Medical History insomnia Surgical History wisdom teeth left side only Goals Section No Information Health Concerns No Information MEDICAL EQUIPMENT No Information MENTAL STATUS No Information FUNCTIONAL STATUS No Information ASSESSMENTS Encounter Date Diagnosis Assessment Notes Treatment Notes Treatm ent Clinical Notes Jul, Cough (ICD-10 - R05) Jul, Viral illness (ICD-10 - B34.9) Jul, Nonintractable headache, uns pecified chronicity pattern, unspecified headache type (ICD-10 - R51.9) Jul, Mild intermittent asthma, un specified whether complicated (ICD-10 - J45.20) Jul, Nausea and vomiting, intract ability of vomiting not specified, unspecified vomiting type (ICD-10 - R11.2) Jul, Other Treatment options discussed with patient. PLAN OF TREATMENT Medication Medication Name Sig Start Date Stop Date Mirtazapine 15 MG 1 tablet at bedtime Orally Once a day LORazepam 0.5 MG 1 tablet at bedtime as needed Orally Once a day Advair Diskus 250-50 MCG/DOSE 1 puff Inhalation Twice a day Ventolin HFA 108 (90 Base) MCG/ACT 1 puff as needed Inhalation e very 4 hrs Ibuprofen 800 MG 1 tablet with food or milk a s needed Orally Three times a day for 10 day(s) Jul, Lexapro 20 MG 1 tablet Orally Once a day Next Appt Details prn Reason: Provider Name:Chata Hightower, 2020-10 02:00:00 PM, [address] [place], [address], Insurance Providers Payer Name Payer Address Payer Phone Insured Name Patient Relati onship to Insured Coverage Start Date Coverage End Date [facility] [address] [place] [id number] FLO KRUEGER
--- OUTSIDE RECORDS SUMMARY | 2020-10-01 09:55 | CCD ---
Author Author [facility] Organization [facility] Address Unknown Phone Unavailable Care Team Providers Care Bilingual Instructor Name Role Phone Bere Alexandra Unavailable PROBLEMS Type Condition ICD9-CM Code [id number] Code Onset Dates Condition S tatus SNOMED Code Notes Problem Morbid (severe) obesity due to excess calories E66 .01 Active 37139858798017 Problem YANG (obstructive sleep apnea) G47.33 Active 78 729457 Problem Panic disorder [episodic paroxysmal anxiety] F41.0 Active 622323291 Problem Insomnia, unspecified type G47.00 Active 59585 2001 Problem Generalized anxiety disorder F41.1 Active 218 63963 Problem Hypogonadism in male E29.1 Active 01440193 Problem Mild intermittent asthma, unspecified whether complicated J45.20 Active 816677102 Problem Drug-induced erectile dysfunction N52.2 Active 552888394 Problem Body mass index (BMI) 45.0-49.9, adult Z68.42 A ctive 909472119 Problem Major depressive disorder, recurrent, moderate F33 .1 Active 106102892 Problem Obstructive sleep apnea G47.33 Active 35343527 Problem Erectile dysfunction, unspecified erectile dysfunction typ e N52.9 Active 210211803 Problem Calculus, renal N20.0 Active 43328722 ALLERGIES No Known Allergies ENCOUNTERS from 1983 to 2020-08-20 Encounter Location Date Provider Diagnosis [facility] [place] [address] Jul Bere Alexandra IMMUNIZATIONS No Information SOCIAL HISTORY Tobacco Use: Social History Observation Description Date Details (start date - stop date) Never Smoker Sex Assigned At : Social History Observation Description Sex Assigned At Unknown Education: Question Answer Notes Level of Education: Finished College Audit Question Answer Notes Total Score: 0 Interpretation: Alcohol Education Language: Question Answer Notes Languages spoken: Central African Christian: Question Answer Notes Christian No bahai beliefs that would impact health care. Sexual [...] REASON FOR REFERRAL No Information VITAL SIGNS No information MEDICATIONS Medication SIG (Take, Route, Frequency, Duration) [...] a day Active PROCEDURES No Information RESULTS No Results REASON FOR VISIT covid negative MEDICAL (GENERAL) HISTORY Type Description Date Medical History anxiety/depression Medical History panic attacks Medical History insomnia Surgical History wisdom teeth left side only Goals Section No Information Health Concerns No Information MEDICAL EQUIPMENT No Information MENTAL STATUS No Information FUNCTIONAL STATUS No Information ASSESSMENTS No Information PLAN OF TREATMENT Medication Medication Name Sig [...] Orally Once a day Next Appt Details Provider Name:Chata Hightower, 2020-10 02:00:00 PM, [address] [place], [address], Insurance Providers Payer Name Payer Address Payer Phone Insured Name Patient Relati onship to Insured Coverage Start Date Coverage End Date [facility] [address] [place] [address] FLO KRUEGER
--- OUTSIDE RECORDS SUMMARY | 2020-10-01 09:55 | CCD ---
Author Author [facility] Organization [facility] Address Unknown Phone Unavailable Care Team Providers Care Hotel Guest Service Agent Name Role Phone Chata Hightower Unavailable PROBLEMS Type Condition ICD9-CM Code [id number] Code Onset Dates Condition S tatus SNOMED Code Notes Problem Morbid (severe) obesity due to excess calories E66 .01 Active 91802368291698 Problem YANG (obstructive sleep apnea) G47.33 Active 78 761174 Problem Panic disorder [episodic paroxysmal anxiety] F41.0 Active 394438101 Problem Insomnia, unspecified type G47.00 Active 47746 2000 Problem Generalized anxiety disorder F41.1 Active 218 93466 Problem Hypogonadism in male E29.1 Active 91074320 Problem Mild intermittent asthma, unspecified whether complicated J45.20 Active 978380024 Problem Drug-induced erectile dysfunction N52.2 Active 009856158 Problem Body mass index (BMI) 45.0-49.9, adult Z68.42 A ctive 700961706 Problem Major depressive disorder, recurrent, moderate F33 .1 Active 130052650 Problem Obstructive sleep apnea G47.33 Active 67717157 Problem Erectile dysfunction, unspecified erectile dysfunction typ e N52.9 Active 139694427 Problem Calculus, renal N20.0 Active 16970155 ALLERGIES No Known Allergies ENCOUNTERS from 1983 to 2020-08-15 Encounter Location Date Provider Diagnosis [facility] [address] [place] [address] Jul Chata Hightower IMMUNIZATIONS No Information SOCIAL HISTORY Tobacco Use: Social History Observation Description Date Details (start date - stop date) Never Smoker Sex Assigned At : Social History Observation Description Sex Assigned At Unknown Education: Question Answer Notes Level of Education: Finished College Audit Question Answer Notes Total Score: 0 Interpretation: Alcohol Education Language: Question Answer Notes Languages spoken: [place] Citizen Baptist: Question Answer Notes Baptist No restorationism beliefs that would impact health care. Sexual [...] Information RESULTS No Results REASON FOR VISIT n/v, body aches MEDICAL [...] Name:Chata Hightower, 2020-10 02:00:00 PM, [address], [place], [address], Insurance Providers Payer Name Payer Address Payer Phone Insured Name Patient Relati onship to Insured Coverage Start Date Coverage End Date [facility] [address] [place] [id number] FLO KRUEEGR self
--- OUTSIDE RECORDS SUMMARY | 2020-10-01 09:55 | CCD ---
Author Author [facility] Organization [facility] Address Unknown Phone Unavailable Care Team Providers Care Supervisor Shipfitters Name Role Phone Андрей Vasquez Unavailable PROBLEMS Type Condition ICD9-CM Code [id number] Code Onset Dates Condition S tatus SNOMED Code Notes Problem Morbid (severe) obesity due to excess calories E66 .01 Active 93961050086404 Problem YANG (obstructive sleep apnea) G47.33 Active 78 665950 Problem Panic disorder [episodic paroxysmal anxiety] F41.0 Active 367360187 Problem Insomnia, unspecified type G47.00 Active 00953 2000 Problem Generalized anxiety disorder F41.1 Active 218 34131 Problem Hypogonadism in male E29.1 Active 41961566 Problem Mild intermittent asthma, unspecified whether complicated J45.20 Active 362959495 Problem Drug-induced erectile dysfunction N52.2 Active 002392632 Problem Body mass index (BMI) 45.0-49.9, adult Z68.42 A ctive 838882900 Problem Major depressive disorder, recurrent, moderate F33 .1 Active 426291994 Problem Obstructive sleep apnea G47.33 Active 99615399 Problem Erectile dysfunction, unspecified erectile dysfunction typ e N52.9 Active 121283679 Problem Calculus, renal N20.0 Active 81958468 ALLERGIES No Known Allergies ENCOUNTERS from 1983 to 2020-08-03 Encounter Location Date Provider Diagnosis [facility] [address] [place] [address] Jul Vasquez Chiang Calculus, renal N20.0 IMMUNIZATIONS No Information SOCIAL HISTORY Tobacco Use: Social History Observation Description Date Details (start date - stop date) Never Smoker Sex Assigned At : Social History Observation Description Sex Assigned At Unknown Education: Question Answer Notes Level of Education: Finished College Audit Question Answer Notes Total Score: 0 Interpretation: Alcohol Education Language: Question Answer Notes Languages spoken: Korean Mormonism: Question Answer Notes Mormonism No judaism beliefs that would impact health care. Sexual [...] tablet at bedtime Orally Once a day for 30 day(s) Active Ventolin HFA 108 (90 Base) MCG/ACT 1 puff as needed In halation every 4 hrs for 90 Active LORazepam 0.5 MG 1 tablet at bedtime as needed Orally Once a day Active Lexapro 20 MG 1 tablet Orally Once a day for 30 day(s) Active Advair Diskus 250-50 MCG/DOSE 1 puff Inhalation Twice a day for 90 da y(s) Active PROCEDURES No Information RESULTS REASON FOR VISIT CT scan orders MEDICAL (GENERAL) HISTORY Type Description Date Medical History anxiety/depression Medical History panic attacks Medical History insomnia Surgical History wisdom teeth left side only Goals Section No Information Health Concerns No Information MEDICAL EQUIPMENT No Information MENTAL STATUS No Information FUNCTIONAL STATUS No Information ASSESSMENTS Encounter Date Diagnosis Assessment Notes Treatment Notes Treatm ent Clinical Notes Jul, Calculus, renal (ICD-10 - N20.0) PLAN OF TREATMENT Next Appt Details Provider Name:Chata Hightower, 2020-10 02:00:00 PM, [address], [place], [address], Insurance Providers Payer Name Payer Address Payer Phone Insured Name Patient Relati onship to Insured Coverage Start Date Coverage End Date [facility] [address] [place] [id number] FLO KRUEGER self
--- OUTSIDE RECORDS SUMMARY | 2020-10-01 09:55 | CCD ---
Author Author [facility] Organization [facility] Address Unknown Phone Unavailable Care Team Providers Care Hydraulics Engineer Name Role Phone Vasquez Chiang Unavailable PROBLEMS Type Condition ICD9-CM Code [id number] Code Onset Dates Condition S tatus SNOMED Code Notes Problem Morbid (severe) obesity due to excess calories E66 .01 Active 22474731577817 Problem YANG (obstructive sleep apnea) G47.33 Active 78 230930 Problem Panic disorder [episodic paroxysmal anxiety] F41.0 Active 643259472 Problem Insomnia, unspecified type G47.00 Active 39591 2000 Problem Generalized anxiety disorder F41.1 Active 218 31923 Problem Hypogonadism in male E29.1 Active 92974748 Problem Mild intermittent asthma, unspecified whether complicated J45.20 Active 179785024 Problem Drug-induced erectile dysfunction N52.2 Active 875177799 Problem Body mass index (BMI) 45.0-49.9, adult Z68.42 A ctive 821669299 Problem Major depressive disorder, recurrent, moderate F33 .1 Active 536975925 Problem Obstructive sleep apnea G47.33 Active 47614262 Problem Erectile dysfunction, unspecified erectile dysfunction typ e N52.9 Active 038313846 Problem Calculus, renal N20.0 Active 03108225 ALLERGIES No Known Allergies ENCOUNTERS from 1983 to 2020-08-01 Encounter Location Date Provider Diagnosis [facility] Urology [address] [place] [address] Jul Vasquez Chiang Drug-induced erectile dysfunction N52.2 ; Hypogonadism in male E29.1 and Calculus, renal N20.0 IMMUNIZATIONS No Information SOCIAL HISTORY Tobacco Use: Social History Observation Description Date Details (start date - stop date) Never Smoker Sex Assigned At : Social History Observation Description Sex Assigned At Unknown Education: Question Answer Notes Level of Education: Finished College Audit Question Answer Notes Total Score: 0 Interpretation: Alcohol Education Language: Question Answer Notes Languages spoken: Palestinian Mandaeism: Question Answer Notes Mandaeism No episcopal beliefs that would impact health care. Sexual [...] Jul, BMI 50.50 kg/m2 Jul, Heart Rate 98 /min Jul, Respiratory Rate 18 /min Jul, Temperature 96.5 degrees Fahrenheit Jul, Oximetry 97% Jul, Blood pressure systolic 132 mm Hg Jul, Blood pressure diastolic 86 mm Hg Jul, MEDICATIONS Medication SIG (Take, [...] da y(s) Active PROCEDURES No Information RESULTS No Results REASON FOR VISIT ed MEDICAL (GENERAL) HISTORY Type Description Date Medical History anxiety/depression Medical History panic attacks Medical History insomnia Surgical History wisdom teeth left side only Goals Section No Information Health Concerns No Information MEDICAL EQUIPMENT No Information MENTAL STATUS No Information FUNCTIONAL STATUS No Information ASSESSMENTS Encounter Date Diagnosis Assessment Notes Treatment Notes Treatm ent Clinical Notes Jul, Drug-induced erectile dysfunction (ICD-10 - N52. 2) A testosterone level drawn mid afternoon was low at 201, but the patient is totally asymptomatic and now having good erections. He is also obese. CT scan will be obtained to evaluate possible kidney stones with strong family history of stones. CT is negative, the patient may follow up on a when necessary basis. I do not feel that the low testosterone is clinically significant at this time based on his lack of symptoms and time of the specimen draw. Jul, Hypogonadism in male (ICD-10 - E29.1) Jul, Calculus, renal (ICD-10 - N20.0) PLAN OF TREATMENT Treatment Notes Assessment Notes Clinical Notes Drug-induced erectile dysfunction A test osterone level drawn mid afternoon was low at 201, but the patient is totally asymptomatic and now having good erections. He is also obese.CT scan will be obtained to evaluate possible kidney stones with strong family history of stones.CT is negative, the patient may follow up on a when necessary basis.I do not feel that the low testosterone is clinically significant at this time based on his lack of symptoms and time of the specimen draw. Treatment Notes Test Name Order Date CT Abdomen without Contrast 2020-08-01 Next Appt Details prn Reason: Provider Name:Chata Hightower, 2020-10 02:00:00 PM, [address] [place], [address], Insurance Providers Payer Name Payer Address Payer Phone Insured Name Patient Relati onship to Insured Coverage Start Date Coverage End Date [facility] [address] [place] [phone] FLO KRUEGER
--- OUTSIDE RECORDS SUMMARY | 2020-10-01 09:56 | CCD ---
Author Author [facility] Organization [facility] Address Unknown Phone Unavailable Care Team Providers Care Water Treatment Plant Operator Name Role Phone Chata Hightower Unavailable PROBLEMS Type Condition ICD9-CM Code FMS46-QW Code Onset Dates Condition S tatus SNOMED Code Notes Problem Mild intermittent asthma, unspecified whether complicated J45.20 Active 326063281 Problem YANG (obstructive sleep apnea) G47.33 Active 78 901872 Problem Body mass index (BMI) 45.0-49.9, adult Z68.42 A ctive 478890967 Problem Obstructive sleep apnea G47.33 Active 49539846 Problem Morbid (severe) obesity due to excess calories E66 .01 Active 56941429303952 Problem Erectile dysfunction, unspecified erectile dysfunction typ e N52.9 Active 814523940 Problem Generalized anxiety disorder F41.1 Active 218 86143 Problem Major depressive disorder, recurrent, moderate F33 .1 Active 960144534 Problem Panic disorder [episodic paroxysmal anxiety] F41.0 Active 331683523 Problem Insomnia, unspecified type G47.00 Active 38569 2000 ALLERGIES No Known Allergies ENCOUNTERS from 1983 to 2020-07-03 Encounter Location Date Provider Diagnosis [facility] [place] [address] Jun Chata Hightower Erectile dysfunction, unspecified erecti le dysfunction type N52.9 ; Low testosterone in male R79.89 and Hyperkalemia E87.5 IMMUNIZATIONS No Information SOCIAL HISTORY Tobacco Use: Social History Observation Description Date Details (start date - stop date) Never Smoker Sex Assigned At : Social History Observation Description Sex Assigned At Unknown Education: Question Answer Notes Level of Education: Finished College Audit Question Answer Notes Total Score: 0 Interpretation: Alcohol Education Language: Question Answer Notes Languages spoken: Hungarian Baptist: Question Answer Notes Baptist No jewish beliefs that would impact health care. Sexual [...] MEDICATIONS Medication SIG (Take, Route, Frequency, Duration) Start Date En d Date Status Ventolin HFA 108 (90 Base) MCG/ACT 1 puff as needed In halation every 4 hrs for 90 day(s) Oct, Active Lexapro 20 MG 1 tablet Orally Once a day for 30 day(s) Active Mirtazapine 15 MG 1 tablet at bedtime Orally Once a day for 30 day( s) Active Advair Diskus 250-50 MCG/DOSE 1 puff Inhalation Twice a day for 90 day(s) Active LORazepam 0.5 MG 1 tablet at bedtime as needed Orally Once a day Active PROCEDURES No Information RESULTS No Results REASON FOR VISIT ?lab results/referral MEDICAL (GENERAL) HISTORY Type Description Date Medical History anxiety/depression Medical History panic attacks Medical History insomnia Surgical History wisdom teeth left side only Goals Section No Information Health Concerns No Information MEDICAL EQUIPMENT No Information MENTAL STATUS No Information FUNCTIONAL STATUS No Information ASSESSMENTS Encounter Date Diagnosis Notes Jun, Hyperkalemia (ICD-10 - E87.5) Jun, Low testosterone in male (ICD-10 - R79.8 9) Jun, Erectile dysfunction, unspec ified erectile dysfunction type (ICD-10 - N52.9) PLAN OF TREATMENT Future Test Test Name Order Date Potassium Serum Level [id number] Next Appt Details Provider Name:Chata Hightower, 2020-10 02:00:00 PM, [address], [place], [address], Insurance Providers Payer Name Payer Address Payer Phone Insured Name Patient Relati onship to Insured Coverage Start Date Coverage End Date [facility] [address] [place] [address] FLO KRUEGER self
--- OUTSIDE RECORDS SUMMARY | 2020-10-01 09:56 | CCD ---
Author Author [facility] Organization [facility] Address Unknown Phone Unavailable Care Team Providers Care Internal Auditor Name Role Phone TERRIE GUSMAN Unavailable Unavailable CELSA, SVETLANA TK KILN FIRER-C Unavailable Unavailable CELSA, SVETLANA TK KILN FIRER-C Unavailable Unavailable CELSA, SVETLANA TK KILN FIRER-C Unavailable Unavailable CLESA, SVETLANA TK KILN FIRER-C Unavailable Unavailable CELSA, SVETLANA TK KILN FIRER-C Unavailable Unavailable CELSA, SVETLANA TK KILN FIRER-C Unavailable Unavailable CELSA, SVETLANA TK KILN FIRER-C Unavailable Unavailable CELSA, SVETLANA TK KILN FIRER-C Unavailable Unavailable CELSA, SVETLANA TK KILN FIRER-C Unavailable Unavailable CELSA, SVETLANA TK KILN FIRER-C Unavailable Unavailable CELSA, SVETLANA TK KILN FIRER-C Unavailable Unavailable CELSA, SVETLANA TK KILN FIRER-C Unavailable Unavailable CELSA, SVETLANA TK KILN FIRER-C Unavailable Unavailable CELSA, SVETLANA TK KILN FIRER-C Unavailable Unavailable CELSA, SVETLANA TK KILN FIRER-C Unavailable Unavailable Dru Turner MD Unavailable Unavailable Dru Turner MD Unavailable Unavailable Dru Turner MD Unavailable Unavailable Dru Turner MD Unavailable Unavailable Dru Turner MD Unavailable Unavailable Dru Turner MD Unavailable Unavailable Dru Turner MD Unavailable Unavailable [place], Dru MD Unavailable Unavailable [place], Dru MD Unavailable Unavailable [place], Dru MD Unavailable Unavailable [place], Dru MD Unavailable Unavailable [place], Dru MD Unavailable Unavailable [place], Dru MD Unavailable Unavailable [place], Dru MD Unavailable Unavailable [place], Dru MD Unavailable Unavailable [place], Dru MD Unavailable Unavailable [place], Dru MD Unavailable Unavailable [place], Dru MD Unavailable Unavailable [place], Dru MD Unavailable Unavailable [place], Dru MD Unavailable Unavailable [place], Dru MD Unavailable Unavailable [place], Dru MD Unavailable Unavailable [place], Dru MD Unavailable Unavailable [place], Dru MD Unavailable Unavailable [place], Dru MD Unavailable Unavailable [place], Dru MD Unavailable Unavailable [place], Dru MD Unavailable Unavailable [place], Dru MD Unavailable Unavailable REINDL, FLIP EUBANKS Unavailable Unavailable REINDL, FLIP EUBANKS Unavailable Unavailable REINDL, FLIP EUBANKS Unavailable Unavailable REINDL, FLIP EUBANKS Unavailable Unavailable REINDL, FLIP EUBANKS Unavailable Unavailable REINDL, FLIP EUBANKS Unavailable Unavailable REINDL, FLIP EUBANKS Unavailable Unavailable REINDL, FLIP EUBANKS Unavailable Unavailable REINDL, FLIP EUBANKS Unavailable Unavailable REINDL, FLIP EUBANKS Unavailable Unavailable REINDL, FLIP EUBANKS Unavailable Unavailable REINDL, FLIP EUBANKS Unavailable Unavailable REINDL, FLIP EUBANKS Unavailable Unavailable REINDL, FLIP EUBANKS Unavailable Unavailable REINDL, FLIP EUBANKS Unavailable Unavailable REINDL, FLIP EUBANKS Unavailable Unavailable REINDL, FLIP EUBANKS Unavailable Unavailable REINDL, FLIP EUBANKS Unavailable Unavailable REINDL, FLIP EUBANKS Unavailable Unavailable REINDL, FLIP EUBANKS Unavailable Unavailable REINDL, FLIP EUBANKS Unavailable Unavailable REINDL, FLIP EUBANKS Unavailable Unavailable REINDL, FLIP EUBANKS Unavailable Unavailable REINDL, FLIP EUBANKS Unavailable Unavailable REINDL, FLIP EUBANKS Unavailable Unavailable REINDL, FILP EUBANKS Unavailable Unavailable REINDL, FLIP EUBANKS Unavailable Unavailable REINDL, FLIP EUBANKS Unavailable Unavailable REINDL, FLIP EUBANKS Unavailable Unavailable REINDL, FLIP EUBANKS Unavailable Unavailable REINDL, FLIP EUBANKS Unavailable Unavailable REINDL, FLIP EUBANKS Unavailable Unavailable REINDL, FLIP UEBANKS Unavailable Unavailable REINDL, FLIP EUBANKS Unavailable Unavailable REINDL, FLIP EUBANKS Unavailable Unavailable REINDL, FLIP EUBANKS Unavailable Unavailable REINDL, FLIP EUBANKS Unavailable Unavailable REINDL, FLIP EUBANKS Unavailable Unavailable REINDL, FLIP EUBANKS Unavailable Unavailable REINDL, FLIP EUBANKS Unavailable Unavailable REINDL, FLIP EUBANKS Unavailable Unavailable REINDL, FLIP EUBANKS Unavailable Unavailable REINDL, FLIP EUBANKS Unavailable Unavailable REINDL, FLIP EUBANKS Unavailable Unavailable Re-disclosure Warning The records that you are about to access may contain information from federally-assisted alcohol or drug abuse programs. If such information is present, then the following federally mandated warning applies: This information has been disclosed to you from records protected by federal confidentiality rules (42 CFR part 2). The federal rules prohibit you from making any further disclosure of this information unless further disclosure is expressly permitted by the written consent of the person to whom it pertains or as otherwise permitted by 42 CFR part 2. A general authorization for the release of medical or other information is NOT sufficient for this purpose. The Federal rules restrict any use of the information to criminally investigate or prosecute any alcohol or drug abuse patient.The records that you are about to access may contain highly sensitive health information, the redisclosure of which is protected by Article 27-F of the [facility] Public Health law. If you continue you may have access to information: Regarding HIV / AIDS; Provided by facilities licensed or operated by the [facility] Office of Mental Health; or Provided by the [facility] Office for People With Developmental Disabilities. If such information is present, then the following [facility] mandated warning applies: This information has been disclosed to you from confidential records which are protected by state law. State law prohibits you from making any further disclosure of this information without the specific written consent of the person to whom it pertains, or as otherwise permitted by law. Any unauthorized further disclosure in violation of state law may result in a fine or skilled nursing sentence or both. A general authorization for the release of medical or other information is NOT sufficient authorization for further disc losure. Family History Family Member Name Family Member Gender Family Member Status Date o f Status Description Data Source(s) Unknown Unknown Problem MEDENT ([facility], [facility]) Unknown Unknown Problem MEDENT ([facility] Unknown Unknown Problem MEDENT ([facility] Encounters Encounter Providers Location Date Indications Data Source(s ) Unknown [address] [facility] [place] [address] 08/19/2020 12:00:00 AM EST eCW1 ([facility]) Outpatient [address] [facility] [place] [address] 08/14/2020 12:00:00 AM EST eCW1 ([facility]) Unknown [address] [facility] [place] [address] 08/14/2020 12:00:00 AM EST eCW1 ([facility]) Outpatient Attender: FLIP Tomlin/Yue/Ko/Rein dl 08/05/2020 10:00:00 AM EST MEDENT ([facility] [place] [address] [facility] [place] [address] 08/01/2020 12:00:00 AM EST eCW1 ([facility]) [place] [address] [facility] [address] 07/30/2020 12:00:00 AM EST eCW1 ([facility]) Outpatient Attender: TK Tomlin/[place]/Ko/R eindl 07/29/2020 02:45:00 PM EST MEDENT ([facility]) Unknown [address] [facility], [facility] [address] 07/03/2020 12:00:00 AM EST eCW1 ([facility]) Outpatient Attender: Dru Tomlin/Yue/Ko/Reind l 05/31/2020 07:10:00 AM EDT MEDENT ([facility]) [place] [address] [facility] [address] 05/30/2020 12:00:00 AM EDT eCW1 ([facility]) Outpatient Attender: TK Tomlin/[place]/Ko/R eindl 05/13/2020 01:45:00 PM EDT MEDENT ([facility]) Outpatient Attender: TK Tomlin/[place]/Ko/R eindl 03/28/2020 01:15:00 PM EDT MEDENT ([facility]) (TV_Virtual) [facility] [address] [place] [address] 02/08/2020 12:00:00 AM EDT eCW1 ([facility]) Outpatient Attender: TERRIE [facility] 01/11/2020 09:01:05 PM EDT [facility] [place] [address] [facility] [address] 01/02/2020 12:00:00 AM EDT eCW1 ([facility]) [facility] [place] [address] [facility] [address] 01/01/2020 12:00:00 AM EDT eCW1 ([facility]) [facility] [address] [address] 12/07/2019 12:00:00 AM EDT eCW1 ([facility]) [facility] [address] [address] 11/23/2019 12:00:00 AM EDT eCW1 ([facility]) [facility] [place] [address] [facility] [place] [address] 11/20/2019 12:00:00 AM EDT eCW1 ([facility]) [address] [address] 11/09/2019 12:00:00 AM EDT eCW1 ([facility]) [facility] [place] [address] [address] 11/08/2019 12:00:00 AM EDT eCW1 ([facility]) [facility] [place] [address] [address] 11/07/2019 12:00:00 AM EDT eCW1 ([facility]) [facility] [place] [address] [address] 11/06/2019 12:00:00 AM EDT eCW1 ([facility]) [address] [address] 10/25/2019 12:00:00 AM EST eCW1 ([facility]) [address] [address] 10/11/2019 12:00:00 AM EST eCW1 ([facility]) Medications Medication Brand Name Start Date Product Form Dose Route Admi nistrative Instructions Pharmacy Instructions Status Indications Reaction Description Data Source(s) Ibuprofen 800 MG Oral Tablet Ibuprofen 800 MG 08/14/2020 12:00:[address] active Ibuprofen 800 MG eCW1 ([facility]) Ibuprofen 800 MG Oral Tablet Ibuprofen 800 MG 08/14/2020 12:00:[address] active Ibuprofen 800 MG eCW1 ([facility]) Ibuprofen 800 MG Oral Tablet Ibuprofen 800 MG 08/14/2020 12:00:[address] active Ibuprofen 800 MG eCW1 ([facility]) magnesium citrate 58.2 MG/ML Oral Solution Magnesium Citrate 08/05/2020 12:00:00 AM EST active MEDENT ([facility], ) POLYETHYLENE GLYCOL 3350 142 MG/ML Oral Solution [Miralax] M iralax 08/05/2020 12:00:00 AM EST active M EDENT ([facility], ) CPAP 06/04/2020 12:00:00 AM EDT active MEDENT ([facility], ) 200 ACTUAT Albuterol 0.09 MG/ACTUAT Mete red Dose Inhaler [Ventolin] Ventolin HFA 108 (90 Base) MCG/ACT Ventolin HFA 108 (90 Base) MCG/ACT 11/07/2019 12:00:00 AM EDT active 1 puff as needed eCW1 ([facility]) 200 ACTUAT Albuterol 0.09 MG/ACTUAT Mete red Dose Inhaler [Ventolin] Ventolin HFA 108 (90 Base) MCG/ACT Ventolin HFA 108 (90 Base) MCG/ACT 11/07/2019 12:00:00 AM EDT 1.0 {puff_as_needed} active Presley tolin HFA 108 (90 Base) MCG/ACT eCW1 ([facility]) 200 ACTUAT Albuterol 0.09 MG/ACTUAT Mete red Dose Inhaler [Ventolin] Ventolin HFA 108 (90 Base) MCG/ACT Ventolin HFA 108 (90 Base) MCG/ACT 11/07/2019 12:00:00 AM EDT 1.0 {puff_as_needed} active Presley tolin HFA 108 (90 Base) MCG/ACT eCW1 ([facility]) 200 ACTUAT Albuterol 0.09 MG/ACTUAT Mete red Dose Inhaler [Ventolin] Ventolin HFA 108 (90 Base) MCG/ACT Ventolin HFA 108 (90 Base) MCG/ACT 11/07/2019 12:00:00 AM EDT 1.0 {puff_as_needed} active Presley tolin HFA 108 (90 Base) MCG/ACT eCW1 ([facility]) 200 ACTUAT Albuterol 0.09 MG/ACTUAT Mete red Dose Inhaler [Ventolin] Ventolin HFA 108 (90 Base) MCG/ACT Ventolin HFA 108 (90 Base) MCG/ACT 11/07/2019 12:00:00 AM EDT active 1 puff as needed eCW1 ([facility]) Insurance Providers Payer name Policy type / Coverage type Policy ID Covered democrat ID Covered democrat's relationship to cameron Policy Cameron Plan Information [facility] [id number] SP [id number] [facility] [id number] SP [id number] [facility] O [id number] S [id number] [facility] [id number] SP [id number] [facility] [id number] SP [id number] 1200 [place] [id number] SP [id number] [facility] P UNAVAILABLE S UNAVAILABLE Medicaid S UNAVAILABLE S UNAVAILA BLE MEDICAID [id number] SP [id number] [facility] Commercial [id number] Self [id number] [facility] Commercial [id number] Self [id number] [facility] Medicaid Commercial [id number] Self [id number] [facility] [id number] SP [id number] [facility] Commercial [id number] Self [id number] [facility] HEALTH CARE O [id number] S [id number] [facility] HEALTH [facility]ARE [id number] SP [id number] [facility] Medicaid Commercial [id number] Self [id number] P Medicaid Commercial [id number] Self [id number] P Medicaid Commercial [id number] Self [id number] [facility] [id number] Self [id number] [employer] Commercial [id number] [employer] Commercial [id number] Self [id number] [employer] Commercial [id number] Self [id number] [employer] [id number] SP [id number] [employer] Commercial [id number] Self [id number] [employer] Commercial [id number] Self [id number] [employer] [id number] SP [id number] [employer] Commercial Self Problems, Conditions, and Diagnoses Code Display Name Description Problem Type Effective Dates Data Source(s) N20.0 Kidney stone Calculus, renal Problem 07/30/2020 12:00:0 0 AM EST eCW1 ([facility]) N52.2 [id number] Drug-induced erectile dysfunction Problem 07/30/2020 12:00:00 AM EST eCW1 ([facility]) E29.1 [id number] Hypogonadism in male Problem 07/30/2020 12:0 0:00 AM EST eCW1 ([facility]) N52.9 [id number] Erectile dysfunction, unspecifie d erectile dysfunction type Problem 07/03/2020 12:00:00 AM EST [facility]1 [facility] G47.33 [id number] Obstructive sleep apnea Problem 11/20/2019 1 2:00:00 AM EDT eCW1 ([facility]) J45.20 [id number] Mild intermittent asthma, unspec ified whether complicated Problem 11/07/2019 12:00:00 AM EDT eCW1 [facility]) J45.20 [id number] Mild intermittent asthma, unspec ified whether complicated Problem 11/07/2019 12:00:00 AM EDT eCW1 ([facility]) Z68.42 [id number] Body mass index (BMI) 45.0-49.9, adult Pr oblem 11/06/2019 12:00:00 AM EDT eCW1 ([facility]) G47.33 [id number] YANG (obstructive sleep apnea) Problem 11/06/2019 12:00:00 AM EDT eCW1 ([facility]) E66.01 [id number] Morbid (severe) obesity due to excess c alories Problem 11/06/2019 12:00:00 AM EDT eCW1 ([facility]) Z68.42 448030890 Body mass index (BMI) 45.0-49.9, adult Pr oblem 11/06/2019 12:00:00 AM EDT eCW1 ([facility]) G47.33 44569076 YANG (obstructive sleep apnea) Problem 11/06/2019 12:00:00 AM EDT eCW1 ([facility]) E66.01 [id number] Morbid (severe) obesity due to excess c alories Problem 11/06/2019 12:00:00 AM EDT eCW1 ([facility]) F41.0 600768011 Panic disorder [episodic paroxysmal anxie ty] Problem 10/20/2019 12:00:00 AM EST eCW1 ([facility]) F33.1 801847614 Major depressive disorder, recurrent, mod erate Problem 10/20/2019 12:00:00 AM EST eCW1 ([facility]) F41.1 05628373 Generalized anxiety disorder Problem 020 12:00:00 AM EST eCW1 ([facility]) G47.00 [id number] Insomnia, unspecified type Problem 0 12:00:00 AM EST eCW1 ([facility]) F33.1 707133053 Major depressive disorder, recurrent, mod erate Problem 10/20/2019 12:00:00 AM EST eCW1 ([facility]) F41.1 57849619 Generalized anxiety disorder Problem 020 12:00:00 AM EST eCW1 ([facility]) G47.00 082467799 Insomnia, unspecified type Problem 0 12:00:00 AM EST eCW1 ([facility]) F41.0 [id number] Panic disorder [episodic paroxysmal anxie ty] Problem 10/20/2019 12:00:00 AM EST eCW1 ([facility]) Surgeries/Procedures Procedure Description Date Indications Data Source(s) TeleMedicine New Pt. Level 3 01/02/2020 12:00:00 AM ED T eCW1 ([facility]) PSYTX W PT 45 MINUTES 11/23/2019 12:00:00 AM EDT eCW1 ([facility]) VENIPUNCT, ROUTINE* 11/08/2019 12:00:00 AM EDT eCW1 ([facility]) PSYCH DIAGNOSTIC EVALUATION 10/11/2019 12:00:00 AM EST eCW1 ([facility]) Results ID Date Data Source [id number] 09/27/2020 12:00:00 PM EST [facility] Name Value Range Interpretation Code Description Data Lucia rce(s) Supporting Document(s) SARS coronavirus 2 RNA Not Detected [facility] This lab was ordered by [facility] and reported by [facility]. ID Date Data Source [id number] 08/14/2020 11:00:00 AM EST [facility] Name Value Range Interpretation Code Description Data Lucia rce(s) Supporting Document(s) SARS coronavirus 2 RNA [facility] This lab was ordered by [facility] and reported by [facility]. ID Date Data Source Coronavirus 2019 NOSE (Send Out) COVID 08/14/2020 12:00:00 A M EST eCW1 ([facility]) Name Value Range Interpretation Code Description Data Lucia rce(s) Supporting Document(s) This nucleic acid amplification test was developed and its CORONAVIRUS 2019 NOSE eCW1 ([facility]) ID Date Data Source CT ABD & Pelvis w/o Contrast 08/02/2020 12:00:00 AM EST eCW1 ([facility]) Name Value Range Interpretation Code Description Data Lucia rce(s) Supporting Document(s) eCW1 ([facility]) Procedure Social History Code Duration Value Status Description Data Source(s ) Smoking 08/14/2020 12:00:00 AM EST Never Smoker completed Never S moker eCW1 ([facility]) Smoking 08/14/2020 12:00:00 AM EST Never Smoker completed Never S moker eCW1 ([facility]) Smoking 08/14/2020 12:00:00 AM EST Never Smoker completed Never S moker eCW1 ([facility]) Smoking 07/30/2020 12:00:00 AM EST Never Smoker completed Never S moker eCW1 ([facility]) Smoking 07/30/2020 12:00:00 AM EST Never Smoker completed Never S moker eCW1 ([facility]) Smoking 07/29/2020 12:00:00 AM EST Patient has never smoked co mpleted Patient has never smoked MEDENT ([facility], ) Smoking 01/02/2020 12:00:00 AM EDT Never Smoker completed Never S moker eCW1 ([facility]) Smoking 01/02/2020 12:00:00 AM EDT Never Smoker completed Never S moker eCW1 ([facility]) Smoking 01/02/2020 12:00:00 AM EDT Never Smoker completed Never S moker eCW1 ([facility]) Vital Signs ID Date Data Source UNK Name Value Range Interpretation Code Description Data Source(s) Diastolic blood pressure 91 mm[Hg] 91 mm[Hg] eCW1 ([facility]) Systolic blood pressure 125 mm[Hg] 125 mm[Hg] e CW1 ([facility]) Body temperature 97.9 [degF] 97.9 [degF] eCW1 ( [facility]) Respiratory rate 18 /min 18 /min eCW1 ([facility]) Heart rate 90 /min 90 /min eCW1 ([facility]) Body mass index (BMI) [Ratio] 50.50 kg/m2 50.50 kg/m2 eCW1 ([facility]) Body height [in_i] eCW1 ([facility]) Body weight 342 [lb_av] 342 [lb_av] eCW1 ([facility]) Body surface area Derived from formula 2.60 m2 2.60 m2 MEDENT ([facility], ) Body weight 156.492 kg 156.492 kg MEDENT ([facility], ) [place] body weight 160 [lb_av] 160 [lb_av] MEDEN T ([facility], ) Body mass index (BMI) [Ratio] 50.9 kg/m2 50.9 k g/m2 MEDENT ([facility], ) Body weight 345.00 [lb_av] 345.00 [lb_av] MEDEN T ([facility]) Body height 69 [in_i] 69 [in_i] [facility] ([facility]) 5'9" Diastolic blood pressure 70 mm[Hg] 70 mm[Hg] [facility] ([facility]) Systolic blood pressure 120 mm[Hg] 120 mm[Hg] M EDENT ([facility]) Diastolic blood pressure 86 mm[Hg] 86 mm[Hg] eCW1 ([facility]) Systolic blood pressure 132 mm[Hg] 132 mm[Hg] e CW1 ([facility]) Body temperature 96.5 [degF] 96.5 [degF] eCW1 ( [facility]) Respiratory rate 18 /min 18 /min eCW1 ([facility]) Heart rate 98 /min 98 /min eCW1 ([facility]) Body mass index (BMI) [Ratio] 50.50 kg/m2 50.50 kg/m2 eCW1 ([facility]) Body height [in_i] eCW1 ([facility]) Body weight 342 [lb_av] 342 [lb_av] eCW1 ([facility]) Body surface area Derived from formula 2.59 m2 2.59 m2 [facility] ([facility]) Body weight 154.224 kg 154.224 kg [facility] ([facility]) [place] body weight 160 [lb_av] 160 [lb_av] MEDEN T ([facility]) Body mass index (BMI) [Ratio] 50.2 kg/m2 50.2 k g/m2 [facility] ([facility]) Body weight 340.00 [lb_av] 340.00 [[facility]_av] [facility] Body height 69 [in_i] 69 [in_i] [facility] ([facility]) 5'9" Body temperature 97.8 [degF] 97.8 [degF] [facility] ([facility]) Oxygen saturation in Arterial blood by Pulse oximetry 98 % 98 % [facility] ([facility]) Heart rate 106 /min 106 /min [facility] ([facility]) Diastolic blood pressure 72 mm[Hg] 72 mm[Hg] [facility] ([facility]) Systolic blood pressure 110 mm[Hg] 110 mm[Hg] [facility] ([facility]) Body weight 147.420 kg 147.420 kg [facility] ([facility]) [place] body weight 160 [lb_av] 160 [lb_av] MEDEN T ([facility]) Body mass index (BMI) [Ratio] 48.0 kg/m2 48.0 k g/m2 [facility] ([facility]) Body weight 325.00 [lb_av] 325.00 [lb_av] MEDEN T ([facility]) Body height 69 [in_i] 69 [in_i] [facility] ([facility]) 5'9" Body weight 151.616 kg 151.616 kg [facility] ([facility]) [place] body weight 160 [lb_av] 160 [lb_av] MEDEN T ([facility]) Body mass index (BMI) [Ratio] 49.4 kg/m2 49.4 k g/m2 [facility] ([facility]) Body weight 334.25 [lb_av] 334.25 [lb_av] [facility] Body height 69 [in_i] 69 [in_i] [facility] ([facility]) 5'9" Body temperature 98.7 [degF] 98.7 [degF] [facility] ([facility]) Oxygen saturation in Arterial blood by Pulse oximetry 99 % 99 % [facility] ([facility]) Heart rate 91 /min 91 /min [facility] ([facility]) Diastolic blood pressure 84 mm[Hg] 84 mm[Hg] [facility] ([facility]) Systolic blood pressure 132 mm[Hg] 132 mm[Hg] [facility] Diastolic blood pressure 86 mm[Hg] 86 mm[Hg] W1 ([facility]) Systolic blood pressure 132 mm[Hg] 132 mm[Hg] e CW1 ([facility]) Body temperature 97.8 [degF] 97.8 [degF] eCW1 ( [facility]) Respiratory rate 18 /min 18 /min eCW1 ([facility]) Heart rate 109 /min 109 /min eCW1 ([facility]) Body mass index (BMI) [Ratio] 47.55 kg/m2 47.55 kg/m2 eCW1 ([facility]) Body height [in_us] eCW1 ([facility]) Body weight Measured [lb_av] eCW1 ([facility]) Patient Treatment Plan of Care Planned Activity Planned Date Details Description Data Source (s) Ibuprofen 800 MG Oral Tablet 08/14/2020 12:00:00 AM EST eCW1 ([facility]) Ibuprofen 800 MG Oral Tablet 08/14/2020 12:00:00 AM EST eCW1 ([facility]) Ibuprofen 800 MG Oral Tablet 08/14/2020 12:00:00 AM EST eCW1 ([facility]) 200 ACTUAT Albuterol 0.09 MG/ACTUAT Metered Dose Inhal er [Ventolin] 11/07/2019 12:00:00 AM EDT eCW1 ([facility])
[2020-10-01] MEDS ORDERED: propofoL 200 MG/20 ML VIAL As Ordered ONE (10:18)
[2020-10-01] MEDS ORDERED: LIDOCAINE 2% 100MG/5ML SDV (FOR ANES.) As Ordered ONE (10:18)
[2020-10-01] MEDS ORDERED: fentaNYL 100 MCG/2 ML INJECTION (J3010) As Ordered ONE (11:05)
--- NOTE | 2020-10-01 11:55 | ROOR ---
Patient Name: Luca Hart Procedure Date: 10/01/2020 11:44 AM Date of : 1985 Age: 34 Room: [facility] Gender: Male Note Status: Finalized Procedure: Upper GI endoscopy Indications: Abdominal pain, Heartburn Providers: Nick ACOSTA MD Referring MD: HALIE Stein pa-c Requesting Provider: Medicines: Monitored Anesthesia Care Complications: No immediate complications. Procedure: Pre-Anesthesia Assessment: - The heart rate, respiratory rate, oxygen saturations, blood pressure, adequacy of pulmonary ventilation, and response to care were monitored throughout the procedure. The Endoscope was introduced through the mouth, and advanced to the second part of duodenum. The upper GI endoscopy was accomplished without difficulty. The patient tolerated the procedure well. Findings: Mildly severe esophagitis was found at the gastroesophageal junction. The exam of the esophagus was otherwise normal. The entire examined stomach was normal. The examined duodenum was normal. Impression: - Mild reflux esophagitis. - Normal stomach. - Normal examined duodenum. - No specimens collected. Recommendation: - Use Prilosec (omeprazole) 40 mg PO daily for 3 months. Procedure Code(s): --- Professional --- 87789, Esophagogastroduodenoscopy, flexible, transoral; diagnostic, including collection of specimen(s) by brushing or washing, when performed (separate procedure) Diagnosis Code(s): --- Professional --- R12, Heartburn R10.9, Unspecified abdominal pain K21.0, Gastro-esophageal reflux disease with esophagitis CPT copyright 2019 [employer]. All rights reserved. The codes documented in this report are preliminary and upon nut sheller review may be revised to meet current compliance requirements. Nick Acosta MD Nick ACOSTA MD 10/01/2020 11:54:54 AM Electronically signed by Nick ACOSTA MD Number of Addenda: 0 Note Initiated On: 10/01/2020 11:44 AM Estimated Blood Loss: Estimated blood loss: none.
--- NOTE | 2020-10-01 12:10 | ROOR ---
Patient Name: Luca Hart Procedure Date: 10/01/2020 11:43 AM Date of : 1985 Age: 34 Room: [facility] Gender: Male Note Status: Finalized Procedure: Colonoscopy Indications: Generalized abdominal pain, Abnormal CT of the GI tract Providers: Nick ACOSTA MD Referring MD: HALIE Stein pa-c Requesting Provider: Medicines: Monitored Anesthesia Care Complications: No immediate complications. Procedure: Pre-Anesthesia Assessment: - The heart rate, respiratory rate, oxygen saturations, blood pressure, adequacy of pulmonary ventilation, and response to care were monitored throughout the procedure. The Colonoscope was introduced through the anus and advanced to 10 cm into the ileum. The colonoscopy was performed without difficulty. The patient tolerated the procedure well. The quality of the bowel preparation was adequate and fair. Findings: The perianal and digital rectal examinations were normal. Internal hemorrhoids were found during retroflexion. The hemorrhoids were medium-sized. The entire examined colon appeared normal. The terminal ileum appeared normal. Impression: - Preparation of the colon was fair/adequate. - Internal hemorrhoids. - The entire examined colon is normal. - The examined portion of the ileum was normal. - No specimens collected. Recommendation: - Use fiber, for example Citrucel, Fibercon, Konsyl or Metamucil. - Return to referring physician as previously scheduled. Procedure Code(s): --- Professional --- 35129, Colonoscopy, flexible; diagnostic, including collection of specimen(s) by brushing or washing, when performed (separate procedure) Diagnosis Code(s): --- Professional --- R93.3, Abnormal findings on diagnostic imaging of other parts of digestive tract R10.84, Generalized abdominal pain K64.8, Other hemorrhoids CPT copyright 2019 [employer]. All rights reserved. The codes documented in this report are preliminary and upon rn enterostomal review may be revised to meet current compliance requirements. Nick Acosta MD Nick ACOSTA MD 10/01/2020 12:10:15 PM Electronically signed by Nick ACOSTA MD Number of Addenda: 0 Note Initiated On: 10/01/2020 11:43 AM Estimated Blood Loss: Estimated blood loss: none.
[2020-10-01 12:53] VITALS: BP 109/63
== END 2020-10-01 12:55 | disposition home or self-care (01) ==
LOC: M OPP 09:50
PROVIDERS: ATTEND Internal Medicine Gastroenterology
DX: R10.84 Generalized abdominal pain (principal); R93.3 Abnormal findings on diagnostic imaging of other parts of digestive tract; R12 Heartburn; K64.8 Other hemorrhoids; K21.00 Gastro-esophageal reflux disease with esophagitis, without bleeding; F41.9 Anxiety disorder, unspecified; F32.9 Major depressive disorder, single episode, unspecified; J45.909 Unspecified asthma, uncomplicated; G47.30 Sleep apnea, unspecified; Z79.899 Other long term (current) drug therapy; Z83.79 Family history of other diseases of the digestive system
CPT/HCPCS: 43235; 45378; J3010

== ENCOUNTER 2022-01-29 18:36 | Emergency (ER) | payer OTHER ==
[~2022-01-29] VITALS: Ht 175.3 cm; Wt 140.9 kg
[~2022-01-29 18:36] MED LIST changes: -ALBU2.5V10 NEB; -CEFD300C41 PO; -EFFE150C2; -EFFE75CA2; -FLUT1BLS5; -LORA1TAB4; -PRAZ2CAP; -PRED20TA PO; -TRAZ-252; -VENL37.598; -ZITHTAB PO
[2022-01-29] MEDS ORDERED: EFFE75CA2 (18:46)
[2022-01-29] MEDS ORDERED: TRAZ-252 (18:46)
[2022-01-29] MEDS ORDERED: LORA1TAB4 (18:46)
[2022-01-29] MEDS ORDERED: VENL37.598 (18:46)
[2022-01-29] MEDS ORDERED: PRAZ2CAP (18:46)
[2022-01-29] MEDS ORDERED: EFFE150C2 (18:46)
[2022-01-29] MEDS ORDERED: FLUT1BLS5 (18:46)
[2022-01-29] MEDS ORDERED: ISOVUE-370 76% 100ML VIAL As Ordered ONE (19:05)
[2022-01-29] MEDS ORDERED: NS 1,000 ML IV ONE (20:35)
[2022-01-29] MEDS: COMBIVENT RESPIMAT 100-20MCG INHALER 4GM INH SCH ×2 (21:18→21:19)
[2022-01-29 21:38] LABS: RSV AMPLIFICATION NEGATIVE (NEGATIVE)
[2022-01-29] MEDS ORDERED: cefTRIAXone SOD 1 GM in D5W MINI-BAG PLUS 50 ML IV ONE (22:00)
[2022-01-29] MEDS ORDERED: AZITHROMYCIN 250MG TABLET PO ONE (22:00)
[2022-01-29 22:15] VITALS: BP 125/82
[2022-01-29] MEDS ORDERED: PRED20TA PO (22:25)
[2022-01-29] MEDS ORDERED: predniSONE 20 MG TAB PO ONE (22:25)
[2022-01-29] MEDS ORDERED: CEFD300C41 PO (22:25)
[2022-01-29] MEDS ORDERED: ZITHTAB PO (22:25)
[2022-01-29] MEDS ORDERED: ALBU2.5V10 NEB (22:26)
== END 2022-01-29 23:09 | disposition home or self-care (01) ==
LOC: M ED 18:36
DX: J18.1 Lobar pneumonia, unspecified organism (principal)
CPT/HCPCS: 71275; 87631; 94640; 96361; 96365; 99284; J0696; J7512; Q9967

== ENCOUNTER → 2022-01-29 | Outpatient (CLI) | payer OTHER ==
[~2022-01-29] MED LIST changes: +ALBU2.5V10 NEB; +CEFD300C41 PO; +EFFE150C2; +EFFE75CA2; +FLUT1BLS5; +LORA1TAB4; -NS 1,000 ML IV ONE; +OMEP40CA4; -OMEP40CA97; +PRAZ2CAP; +PRED20TA PO; +TRAZ-252; +VENL37.598; +ZITHTAB PO
[2022-01-29 12:32] LABS: HEMATOCRIT 41.1 % (42.0-52.0); MEAN CORPUSCULAR HGB CONC 31.6 g/dl (32.0-36.5); MEAN CORPUSCULAR VOLUME 91.5 fl (80.0-96.0); PLATELET COUNT, AUTOMATED 257 10^3/uL (150-450); RED BLOOD COUNT 4.49 10^6/uL (4.30-6.10); WHITE BLOOD COUNT 10.5 10^3/uL (4.0-10.0)
[2022-01-29 12:57] LABS: BLOOD UREA NITROGEN 13 MG/DL (7-18); CARBON DIOXIDE LEVEL 26 MEQ/L (21-32); CHLORIDE LEVEL 108 MEQ/L (98-107); CREATININE FOR GFR 1.19 MG/DL (0.70-1.30); FREE T4 0.99 NG/DL (0.76-1.46); GLOMERULAR FILTRATION RATE > 60.0 (>60); GLUCOSE, FASTING 91 MG/DL (70-100); NT-PRO BNP 51 PG/ML (<125); POTASSIUM SERUM 4.2 MEQ/L (3.5-5.1); SODIUM LEVEL 140 MEQ/L (136-145)
== END ==
LOC: M WUC 10:20
PROVIDERS: ATTEND Physician Assistant Medical
DX: R00.0 Tachycardia, unspecified (principal)

== ENCOUNTER 2022-05-03 13:26 | Emergency (ER) | payer OTHER ==
[~2022-05-03] VITALS: Ht 175.3 cm; Wt 148.2 kg
[~2022-05-03 13:26] MED LIST changes: +ALBU2.5V10 NEB; +CEFD300C41 PO; +EFFE150C2; +EFFE75CA2; +FLUT1BLS5; +LORA1TAB4; +PRAZ2CAP; +PRED20TA PO; +TRAZ-252; +VENL37.598; +ZITHTAB PO
[2022-05-03 15:51] LABS: RSV AMPLIFICATION NEGATIVE (NEGATIVE)
[2022-05-03] MEDS ORDERED: dexameTHASONE 20MG/5ML VIAL (J1100 PER 1MG) IV ONE (16:35)
[2022-05-03] MEDS ORDERED: NS 1,000 ML IV ONE (16:35)
[2022-05-03] MEDS: COMBIVENT RESPIMAT 100-20MCG INHALER 4GM INH SCH ×2 (16:50→16:51)
[2022-05-03 17:29] VITALS: O2SAT 90
[2022-05-03 17:29] LABS: BASO % 0.4 % (0.0-1.0); EOS # 0.6 10^3/uL (0.0-0.5); EOS % 6.2 % (0.0-3.0); HEMATOCRIT 44.3 % (42.0-52.0); LYMPH # 1.9 10^3/uL (1.5-5.0); LYMPH % 20.8 % (24.0-44.0); MEAN CORPUSCULAR HEMOGLOBIN 28.8 pg (27.0-33.0); MEAN CORPUSCULAR HGB CONC 31.6 g/dl (32.0-36.5); MEAN CORPUSCULAR VOLUME 91.2 fl (80.0-96.0); MONO # 0.8 10^3/uL (0.0-0.8); MONO % 8.4 % (2.0-8.0); NEUTROPHILS # 5.7 10^3/uL (1.5-8.5); NEUTROPHILS % 63.3 % (36.0-66.0); PLATELET COUNT, AUTOMATED 289 10^3/uL (150-450); RED BLOOD COUNT 4.86 10^6/uL (4.30-6.10)
[2022-05-03] MEDS ORDERED: ISOVUE-370 76% 100ML VIAL As Ordered ONE (17:38)
[2022-05-03 18:09] LABS: CK-MB VALUE MASS < 1.0 NG/ML (<3.6); CPK CREATINE PHOSPHOKINASE 65 U/L (39-308); MB/CK RELATIVE INDEX 1.54 (< OR =4)
[2022-05-03 19:06] VITALS: BP 123/86
[2022-05-03] MEDS ORDERED: PRED20TA PO (19:46)
== END 2022-05-03 19:54 | disposition home or self-care (01) ==
LOC: M ED 13:26
DX: U07.1 COVID-19 (principal); R06.00 Dyspnea, unspecified; R07.9 Chest pain, unspecified; J45.909 Unspecified asthma, uncomplicated; S22.080A Wedge compression fracture of T11-T12 vertebra, initial encounter for closed fracture; Z79.51 Long term (current) use of inhaled steroids; Z79.899 Other long term (current) drug therapy
CPT/HCPCS: 36600; 71275; 80047; 82550; 82553; 82803; 85025; 87631; 93005; 94640; 96361; 96374; 99284; J1100; Q9967

== ENCOUNTER → 2022-12-15 | Outpatient (REF) | payer OTHER ==
[2022-12-15 18:05] LABS: BASO % 0.5 % (0.0-1.0); EOS # 0.3 10^3/uL (0.0-0.5); EOS % 3.3 % (0.0-3.0); HEMATOCRIT 44.9 % (42.0-52.0); HEMOGLOBIN 13.5 g/dl (13.5-17.5); LYMPH # 2.1 10^3/uL (1.5-5.0); LYMPH % 24.4 % (24.0-44.0); MEAN CORPUSCULAR HEMOGLOBIN 28.2 pg (27.0-33.0); MEAN CORPUSCULAR HGB CONC 30.1 g/dl (32.0-36.5); MEAN CORPUSCULAR VOLUME 93.9 fl (80.0-96.0); MONO # 0.6 10^3/uL (0.0-0.8); MONO % 7.1 % (2.0-8.0); NEUTROPHILS # 5.4 10^3/uL (1.5-8.5); NEUTROPHILS % 63.4 % (36.0-66.0); PLATELET COUNT, AUTOMATED 292 10^3/uL (150-450); RED BLOOD COUNT 4.78 10^6/uL (4.30-6.10); WHITE BLOOD COUNT 8.5 10^3/uL (4.0-10.0)
[2022-12-15 18:07] LABS: APPEARANCE, URINE CLEAR (CLEAR); BACTERIA, URINE AUTO NEGATIVE (NEGATIVE); BILIRUBIN, URINE AUTO NEGATIVE (NEGATIVE); BLOOD, URINE BLOOD NEGATIVE (NEGATIVE); COLOR, URINE YELLOW (YELLOW); GLUCOSE, URINE (UA) AUTO NEGATIVE (NEGATIVE); KETONE, URINE AUTO NEGATIVE (NEGATIVE); LEUKOCYTE ESTERASE, URINE AUTO NEGATIVE (NEGATIVE); NITRITE, URINE AUTO NEGATIVE (NEGATIVE); PROTEIN, URINE AUTO NEGATIVE (NEGATIVE); RBC, URINE AUTO 0 /HPF (0-3); SPECIFIC GRAVITY URINE AUTO 1.015 (1.002-1.035); SQUAMOUS EPITHELIAL CELL UR AU 0 /HPF (0-6); UROBILINOGEN, URINE AUTO 0.2 mg/dL (0.0-2.0); WBC, URINE AUTO 0 /HPF (0-3)
[2022-12-15 18:49] LABS: ALBUMIN 3.4 G/DL (3.2-5.2); ALKALINE PHOSPHATASE 68 U/L (46-116); ALT/SGPT 24 U/L (7.0-40); AST/SGOT 28 U/L (<34); BILIRUBIN,TOTAL 0.5 MG/DL (0.3-1.2); BLOOD UREA NITROGEN 14 MG/DL (9-23); CALCIUM LEVEL 8.4 MG/DL (8.5-10.1); CARBON DIOXIDE LEVEL 29 MMOL/L (20-31); CHLORIDE LEVEL 105 MMOL/L (98-107); CHOLESTEROL LEVEL 170 MG/DL (<200); CHOLESTEROL RISK RATIO 2.24 (<5); CREATININE FOR GFR 0.91 MG/DL (0.70-1.30); GLOMERULAR FILTRATION RATE > 60.0 (>60); GLUCOSE, FASTING 86 MG/DL (60-100); HDL CHOLESTEROL 75.8 MG/DL (>40); NON-HDL-C 94.2 MG/DL; POTASSIUM SERUM 4.2 MMOL/L (3.5-5.1); SODIUM LEVEL 140 MMOL/L (136-145); TRIGLYCERIDES LEVEL 46 MG/DL (<150)
[2022-12-15 18:50] LABS: THYROID STIMULATING HORMONE 1.291 uIU/ML (0.55-4.78)
[2022-12-15 18:51] LABS: TOTAL 25(OH) VITAMIN D 9.1 NG/ML (20.0-100.0)
== END ==
LOC: M SFHCCAPE 09:35
PROVIDERS: ATTEND Physician Assistant
DX: E66.01 Morbid (severe) obesity due to excess calories (principal)

== ENCOUNTER → 2024-01-19 | Outpatient (REF) | payer MEDICARE, MEDICAID ==
[~2024-01-19] MED LIST changes: +CEFD1CAP9 PO; -CEFD300C41 PO; -EFFE150C2; +EFFE150C3; +LORA1TAB23; -LORA1TAB4
[2024-01-19 16:59] LABS: BASO % 0.4 % (0.0-1.0); EOS # 0.2 10^3/uL (0.0-0.5); EOS % 3.3 % (0.0-3.0); HEMATOCRIT 41.7 % (42.0-52.0); LYMPH # 2.2 10^3/uL (1.5-5.0); LYMPH % 31.4 % (24.0-44.0); MEAN CORPUSCULAR HEMOGLOBIN 27.6 pg (27.0-33.0); MEAN CORPUSCULAR HGB CONC 31.2 g/dl (32.0-36.5); MEAN CORPUSCULAR VOLUME 88.5 fl (80.0-96.0); MONO # 0.6 10^3/uL (0.0-0.8); MONO % 8.5 % (2.0-8.0); NEUTROPHILS # 3.9 10^3/uL (1.5-8.5); NEUTROPHILS % 55.8 % (36.0-66.0); PLATELET COUNT, AUTOMATED 307 10^3/uL (150-450); RED BLOOD COUNT 4.71 10^6/uL (4.30-6.10)
[2024-01-19 17:39] LABS: IRON (FE) 26 UG/DL (65-175)
[2024-01-19 17:41] LABS: ALBUMIN 3.3 G/DL (3.2-5.2); ALKALINE PHOSPHATASE 65 U/L (46-116); ALT/SGPT 20 U/L (7.0-40); AST/SGOT 13 U/L (<34); BILIRUBIN,TOTAL 0.3 MG/DL (0.3-1.2); BLOOD UREA NITROGEN 17 MG/DL (9-23); CALCIUM LEVEL 8.6 MG/DL (8.5-10.1); CARBON DIOXIDE LEVEL 28 MMOL/L (20-31); CHLORIDE LEVEL 107 MMOL/L (98-107); CHOLESTEROL LEVEL 147 MG/DL (<200); CHOLESTEROL RISK RATIO 2.59 (<5); CPK CREATINE PHOSPHOKINASE 52 U/L (46-171); CREATININE FOR GFR 0.95 MG/DL (0.70-1.30); GLOMERULAR FILTRATION RATE > 60.0 (>60); GLUCOSE, FASTING 91 MG/DL (60-100); HDL CHOLESTEROL 56.6 MG/DL (>40); LDL CHOLESTEROL 73.2 MG/DL (<100); NON-HDL-C 90.4 MG/DL; POTASSIUM SERUM 4.3 MMOL/L (3.5-5.1); SODIUM LEVEL 142 MMOL/L (136-145); TOTAL PROTEIN 6.8 G/DL (5.7-8.2); TRIGLYCERIDES LEVEL 86 MG/DL (<150)
[2024-01-19 17:46] LABS: VITAMIN B12 LEVEL 525 PG/ML (211-911)
[2024-01-19 17:48] LABS: FOLATE > 24.0 NG/ML (>5.4); THYROID STIMULATING HORMONE 2.119 uIU/ML (0.55-4.78)
[2024-01-19 18:07] LABS: HEMOGLOBIN A1c 5.1 % (4.0-6.0)
[2024-01-20 09:48] LABS: PERCENT SATURATION 9.5 % (19.7-50.0); TOTAL IRON BINDING CAPACITY 274 UG/DL (250-425)
[2024-01-20 09:51] LABS: FERRITIN 54.7 NG/ML (10.5-307.3)
== END ==
LOC: M SFHCCAPE 08:40
PROVIDERS: ATTEND Physician Assistant Medical
DX: G25.81 Restless legs syndrome (principal); M79.605 Pain in left leg; R20.2 Paresthesia of skin; Z68.43 Body mass index [BMI] 50.0-59.9, adult; E78.00 Pure hypercholesterolemia, unspecified; D50.9 Iron deficiency anemia, unspecified

== ENCOUNTER → 2024-01-25 | Outpatient (CLI) | payer MEDICARE, MEDICAID | LOC: M CLY 14:59 | PROVIDERS: ATTEND Physician Assistant Medical | DX: M41.86 Other forms of scoliosis, lumbar region (principal); M47.9 Spondylosis, unspecified; M54.41 Lumbago with sciatica, right side; M79.605 Pain in left leg ==

== ENCOUNTER → 2024-01-29 | Outpatient (CLI) | payer MEDICARE, OTHER | LOC: M SLEEP 20:00 | PROVIDERS: ATTEND Nurse Practitioner Family | DX: G47.33 Obstructive sleep apnea (adult) (pediatric) (principal) ==

== ENCOUNTER → 2024-03-18 | Outpatient (CLI) | payer MEDICARE, OTHER | LOC: M RAD 13:57 | PROVIDERS: ATTEND Pain Medicine Interventional Pain Medicine | DX: M54.16 Radiculopathy, lumbar region (principal) ==

== ENCOUNTER → 2025-01-11 | Outpatient (REF) | payer MEDICARE, OTHER ==
[~2025-01-11] MED LIST changes: -AMBI5TAB PO; +ZOLP-532 PO
[2025-01-11 18:48] LABS: ALBUMIN 3.5 G/DL (3.2-5.2); ALKALINE PHOSPHATASE 65 U/L (40-129); ALT/SGPT 18 U/L (7.0-40); AST/SGOT 16 U/L (<34); BILIRUBIN,TOTAL 0.3 MG/DL (0.3-1.2); BLOOD UREA NITROGEN 16 MG/DL (9-23); C REACTIVE PROTEIN QUANTITATIV 1.11 MG/DL (<1.0); CALCIUM LEVEL 8.8 MG/DL (8.5-10.1); CARBON DIOXIDE LEVEL 28 MMOL/L (20-31); CHLORIDE LEVEL 106 MMOL/L (98-107); CREATININE FOR GFR 0.89 MG/DL (0.70-1.30); GLOMERULAR FILTRATION RATE > 90.0 (>60); GLUCOSE, FASTING 92 MG/DL (60-100); POTASSIUM SERUM 4.2 MMOL/L (3.5-5.1); SODIUM LEVEL 140 MMOL/L (136-145); TOTAL PROTEIN 7.1 G/DL (5.7-8.2)
[2025-01-11 18:50] LABS: THYROID STIMULATING HORMONE 1.639 uIU/ML (0.55-4.78)
[2025-01-11 18:57] LABS: FREE T4 0.83 NG/DL (0.89-1.76)
[2025-01-11 19:05] LABS: BASO % 0.2 % (0.0-1.0); EOS # 0.2 10^3/uL (0.0-0.5); EOS % 2.2 % (0.0-3.0); HEMATOCRIT 46.9 % (42.0-52.0); HEMOGLOBIN 14.3 g/dl (13.5-17.5); LYMPH % 31.5 % (24.0-44.0); MEAN CORPUSCULAR HEMOGLOBIN 27.9 pg (27.0-33.0); MEAN CORPUSCULAR HGB CONC 30.5 g/dl (32.0-36.5); MEAN CORPUSCULAR VOLUME 91.4 fl (80.0-96.0); MONO # 0.6 10^3/uL (0.0-0.8); NEUTROPHILS # 5.6 10^3/uL (1.5-8.5); NEUTROPHILS % 59.4 % (36.0-66.0); PLATELET COUNT, AUTOMATED 320 10^3/uL (150-450); RED BLOOD COUNT 5.13 10^6/uL (4.30-6.10); WHITE BLOOD COUNT 9.5 10^3/uL (4.0-10.0)
[2025-01-11 19:21] LABS: ERYTHROCYTE SEDIMENTATION RATE 37 mm/hr (0-15)
== END ==
LOC: M SFHCCAPE 08:46
PROVIDERS: ATTEND Physician Assistant Medical
DX: R79.82 Elevated C-reactive protein (CRP) (principal); R70.0 Elevated erythrocyte sedimentation rate; L50.9 Urticaria, unspecified; Z79.899 Other long term (current) drug therapy

== ENCOUNTER → 2025-05-09 | Outpatient (REF) | payer MEDICARE, OTHER, MEDICAID ==
[2025-05-09 19:30] LABS: BASO # 0.0 10^3/uL (0.0-0.2); BASO % 0.3 % (0.0-1.0); EOS # 0.8 10^3/uL (0.0-0.5); EOS % 8.9 % (0.0-3.0); LYMPH # 2.5 10^3/uL (1.5-5.0); LYMPH % 26.6 % (24.0-44.0); MONO # 0.6 10^3/uL (0.0-0.8); MONO % 6.1 % (2.0-8.0); NEUTROPHILS # 5.4 10^3/uL (1.5-8.5); NEUTROPHILS % 57.1 % (36.0-66.0); PLATELET COUNT, AUTOMATED 274 10^3/uL (150-450)
[2025-05-09 19:43] LABS: ERYTHROCYTE SEDIMENTATION RATE 32 mm/hr (0-15)
[2025-05-09 19:53] LABS: ALT/SGPT 25 U/L (7.0-40); AST/SGOT 26 U/L (<34); CALCIUM LEVEL 9.2 MG/DL (8.5-10.1); CARBON DIOXIDE LEVEL 28 MMOL/L (20-31); CHLORIDE LEVEL 107 MMOL/L (98-107); CREATININE FOR GFR 1.01 MG/DL (0.70-1.30); GLOMERULAR FILTRATION RATE > 90.0 (>60); POTASSIUM SERUM 4.4 MMOL/L (3.5-5.1); SODIUM LEVEL 145 MMOL/L (136-145)
[2025-05-09 19:55] LABS: THYROXINE (T4) 7.1 UG/DL (4.5-10.9)
[2025-05-09 19:58] LABS: COMPLEMENT C4 41.7 MG/DL (12-36)
[2025-05-09 19:59] LABS: RHEUMATOID FACTOR QUANT < 3.5 IU/ML (<14)
[2025-05-09 20:02] LABS: THYROGLOBULIN ANTIBODY < 15.0 U/ML (<60.0); THYROID PEROXIDASE ANTIBODY < 28.0 U/ML (<60.0); TOTAL T3 113.1 NG/DL (60.0-181.0)
[2025-05-14 11:17] LABS: TRYPTASE 7.3 mcg/L (<11.0)
[2025-05-14 17:07] LABS: COMPLEMENT TOTAL (CH50) 57 U/mL (31-60)
== END ==
LOC: M LAB REF 17:55
PROVIDERS: ATTEND Allergy & Immunology Allergy
DX: L50.1 Idiopathic urticaria (principal); Z79.899 Other long term (current) drug therapy